=== PATIENT | male | born 1990 | race Caucasian/White ===

== ENCOUNTER 2020-10-24 18:28 | Inpatient (IN) | payer MEDICAID, SELFPAY ==
[2020-10-24 18:35] VITALS: BP 141/93; PULSE 136; RESP 20; TEMP 37.3; O2SAT 93
[2020-10-24 18:55] VITALS: BMI 50.0
[2020-10-24 20:59] VITALS: BP 167/84; PULSE 129; RESP 24; TEMP 36.5; O2SAT 96
[2020-10-24] MEDS: ondansetron 4 MG Tablet PO (21:32)
[2020-10-24] MEDS: loperamide 2 mg Capsule PO (21:32)
[2020-10-24] MEDS: hyDROXYzine 25 mg Capsule 50 MG PO (21:33)
[2020-10-24] MEDS: trazodone 50 mg Tablet PO (21:33)
[2020-10-25] MEDS: acetaminophen 325 mg Tablet 650 MG PO ×3 (00:41→20:01)
[2020-10-25 06:00] VITALS: BP 155/97; PULSE 99; RESP 20; TEMP 36.9; O2SAT 99
--- NOTE | 2020-10-25 06:01 | PM.NHP ---
Providers/Chief Complaint Admitting Physician: Arthur Swenson MD Chief Complaint: SI/Depression HPI NPU History of Present Illness Nomi Das is a 30 year old male Meds NPU Home Medications Medication Instructions Recorded Confirmed Last Taken Type cyclobenzaprine 10 mg PO TID PRN 10/24/20 10/24/20 Unknown History hydroxyzine pamoate [Vistaril] 100 mg PO TID 10/24/20 10/24/20 Unknown History lamotrigine [Lamictal] 25 mg PO DAILY 10/24/20 10/24/20 Unknown History lisinopril-hydrochlorothiazide 1 tab PO DAILY 10/24/20 10/24/20 Unknown History propranolol 10 mg PO DAILY 10/24/20 10/24/20 Unknown History quetiapine [Seroquel XR] 200 mg PO BEDTIME 10/24/20 10/24/20 Unknown History Allergies Allergy/AdvReac Type Severity Reaction Status Date / Time Penicillins Allergy Unknown Verified 10/24/20 23:46 Sulfa (Sulfonamide Allergy Unknown Verified 10/24/20 23:46 Antibiotics) Vitals/I&O/Wt Last Vital Signs Temp 97.7 F 10/24/20 20:59 Pulse 129 H 10/24/20 20:59 Resp 24 H 10/24/20 20:59 BP 167/84 10/24/20 20:59 Pulse Ox 96 10/24/20 20:59 Weight last 48 hrs Weight 181.437 kg Involuntary Hold Information 96 Hour Hold: 96 Hour Involuntary Admission: No Coding Level of Care Code Acute Machine Sign Writer for Severino Rutherford
[2020-10-25] MEDS: lamoTRIgine 25 mg Tablet PO (09:03)
[2020-10-25] MEDS: lisinopril 10 mg Tablet PO (09:03)
[2020-10-25] MEDS: propranolol 20 mg Tablet 10 MG PO ×2 (09:03→20:01)
[2020-10-25] MEDS: hydroCHLOROthiazide 25 mg Tablet 12.5 MG PO (09:03)
[2020-10-25] MEDS: hyDROXYzine 25 mg Capsule 100 MG PO ×3 (09:04→20:04)
[2020-10-25] MEDS: loperamide 2 mg Capsule PO (09:47)
--- NOTE | 2020-10-25 11:30 | PC.OT ---
Pt did not attend a.m. OT group.
[2020-10-25 14:00] VITALS: BP 124/80; PULSE 86; RESP 18; TEMP 37.2; O2SAT 98
--- NOTE | 2020-10-25 15:00 | PC.OT ---
Pt did not attend p.m. OT group.
--- NOTE | 2020-10-25 15:10 | P.HP_ITS ---
Providers/Chief Complaint Admitting Physician: Arthur Swenson MD <GRAYSON Pickering STDNT - Last Filed: 10/26/20 11:29> Chief Complaint: SI/Depression <GRAYSON Pickering STDNT - Last Filed: 10/26/20 11:29> HPI NPU History of Present Illness Nomi Das is a 30 year old male with a history of depression and suicidal ideation arriving from [facility]. The ER note states: Patient was released from a psych facility approximately 10 days ago. States that he did not get his medications filled at discharge because his father wouldn't pay for them. he states that he has had thoughts of overdosing on flexeril. Other records state: EtOH negative, Acetaminophen negative, negative: amphetamines, barbiturates, benzodiazepines, cocaine, marijuana, opiates. The patient reports feeling ups and downs more frequently in the past two months. He denies suicidal ideation today but admits previous suicidal ideation related to this admission. He no longer drinks but reports that he used to drink 1 pint of whiskey per day up to three months ago when he quit because he could no longer pay for it. He denies using or a history of using any illicit drugs. He says that his primary stressors are living with his father, father's girlfriend, girlfriend's family (4 people) and financial problems. The patient has a history of taking the medications listed below but has not been adherent due to a lack of access. The patient was diagnosed with schizoaffective disorder at the age of 17 or 18. The patient has been admitted for psychiatric reasons 6 times: 2 times for suicide attempts as a minor, 5 years ago for a suicide attempt, and 4 times since August 2020 for suicidal ideation and depression. 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 The patient states he hopes to be placed in an F because he feels it will be more structured than his current living situation and that he needs that structure in order to stay well. Psychiatric history: as above Substance use history: as above Family history: The patient denies any history of treated or untreated mental conditions in his family as well as denies suicide attempts or completion in the family. 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 <Carlitos De Santiago [facility] STDNT - Last Filed: 10/26/20 11:29> Pt seen with student. Agree with above. <Arthur Swenson MD - Last Filed: 10/27/20 09:50> Meds NPU Home Medications Medication Instructions Recorded Confirmed Last Taken Type cyclobenzaprine 10 mg PO TID PRN 10/24/20 10/24/20 Unknown History hydroxyzine pamoate [Vistaril] 100 mg PO TID 10/24/20 10/24/20 Unknown History lamotrigine [Lamictal] 25 mg PO DAILY 10/24/20 10/24/20 Unknown History lisinopril-hydrochlorothiazide 1 tab PO DAILY 10/24/20 10/24/20 Unknown History propranolol 10 mg PO DAILY 10/24/20 10/24/20 Unknown History quetiapine [Seroquel XR] 200 mg PO BEDTIME 10/24/20 10/24/20 Unknown History <Carlitos De Santiago [facility] STDNT - Last Filed: 10/26/20 11:29> Allergies Allergy/AdvReac Type Severity Reaction Status Date / Time Penicillins Allergy Unknown Verified 10/24/20 23:46 Sulfa (Sulfonamide Allergy Unknown Verified 10/24/20 23:46 Antibiotics) <Carlitos De Santiago [facility] STDNT - Last Filed: 10/26/20 11:29> PFSH NPU PFSH: Medical History (Updated 10/26/20 @ 11:03 by Arthur Swenson MD) Schizoaffective disorder, depressive type <Carlitos De Santiago [facility] STDNT - Last Filed: 10/26/20 11:29> Mental Status Exam MSE Comments: I met with the patient in his room, and he was dressed in hospital scrubs and appropriately groomed. He was calm, cooperative, interactive, and made good eye contact. No psychomotor agitation or retardation Speech is at a regular rate and rhythm, normal volume, good articulation, not pressured. Alert, oriented to person, place, time, situation Attention and concentration were intact to exam Memory is adequate for the interview Mood is depressed. Affect is anxious. Thought process is logical and goal-directed. Thought content: The patient denies suicidal ideation, homicidal ideation, and AVH. The patient reports paranoia. Insight and judgment are fair. Impulse control is fair as well. <Carlitos De Santiago MED STDNT - Last Filed: 10/26/20 11:29> Pt seen with student. Notes reviewed together. Agree with above. <Arthur Swenson MD - Last Filed: 10/27/20 09:50> Vitals/I&O/Wt Last Vital Signs Temp 98.9 F 10/25/20 14:00 Pulse 86 10/25/20 14:00 Resp 18 10/25/20 14:00 BP 124/80 10/25/20 14:00 Pulse Ox 98 10/25/20 14:00 <Carlitos De Santiago MED STDNT - Last Filed: 10/26/20 11:29> Weight last 48 hrs Weight 181.437 kg <Carlitos De Santiago MED STDNT - Last Filed: 10/26/20 11:29> A&P Assessment and plan (1) Major depressive disorder, recurrent severe without psychotic features: Status: Acute <Carlitos De Santiago MED STDNT - Last Filed: 10/26/20 11:29> (2) Anxiety disorder, unspecified: Status: Acute <Carlitos De Santiago MED STDNT - Last Filed: 10/26/20 11:29> Additional A&P Information Assessment and plan (1) Major depressive disorder, recurrent severe without psychotic features: Continue Lamictil 25mg, Seroquel 200mg (2) Anxiety disorder, unspecified: Continue Vistaril 100mg (3) Schizoaffective disorder, depressive type: History of schizoaffective disorder and schizophrenia. Will continue to evaluate for signs and symptoms of these disorders. Nomi Das is a 30 year old male with a history of schizoaffective disorder and suicidal ideation who was transferred from [facility]. RECOMMENDATION AND PLAN: 1. We will continue medication. 2. Continue every 15 minute checks for safety. 3. Encourage individual, group and milieu therapies. 4. Encourage sober living treatment after discharge at the highest level of care to which he is willing to commit. <Carlitos De Santiago MED STDNT - Last Filed: 10/26/20 11:29> History of schizoaffective disorder and schizophrenia. Will continue to evaluate for signs and symptoms of these disorders. Pt seen with student. Plan created together. Agree with above. <Arthur Swenson MD - Last Filed: 10/27/20 09:50> Involuntary Hold Information 96 Hour Hold: 96 Hour Involuntary Admission: No <GRAYSON Pickering STDGERA - Last Filed: 10/26/20 11:29> Attestations NPU Medical Necessity Statement*: . <GRAYSON Pickering STDGERA - Last Filed: 10/26/20 11:29> Psychiatric hospitalization is medically necessary to prevent access to lethal means, to reevaluate medication, and to coordinate a safe discharge. Patient will be in the hospital for over 2 midnights. Likely length of stay is 3 to 5 days. <Arthur Swenson MD - Last Filed: 10/27/20 09:50> Coding Level of Care Code Acute Engineering Research Manager for Chg Fwd Diagnoses Major depressive disorder, recurrent severe without psychotic features F33.2 Anxiety disorder, unspecified F41.9
[2020-10-25] MEDS: quetiapine XR (24HR) 50 mg Tablet 200 MG PO (20:00)
--- NOTE | 2020-10-25 20:00 | PC.NURSE ---
pt requested sleep med, Trazodone 50mg po given.
[2020-10-25] MEDS: trazodone 50 mg Tablet PO (20:01)
[2020-10-25] MEDS: gabapentin 300 mg Capsule PO (20:01)
[2020-10-25 22:00] VITALS: BP 128/89; PULSE 117; RESP 16; TEMP 36.8; O2SAT 94
[2020-10-25] MEDS: naproxen 500 mg Tablet PO (22:58)
--- NOTE | 2020-10-25 23:22 | PC.NURSE ---
PM Assessment Pt cooperative with staff, requested a shower this evening, and he was taken to the shower area, his heart and lung sounds are wnl. Pt states that he has pain in his back and legs rated a 7, requested Naproxen for the pain. Order obtained for 500mg PO Naproxen BID scheduled, administered by med nurse, reassessed and patient reports decrease in pain to a 2. Pt denies AVH, Denies SI/HI at this time. Pt states he is mildly anxious and would like medication to help, med nurse administered 50mg PO Visteril that was affective in decreasing his anxiety to a manageable level. Pt requested medication to help him go to sleep tonight, med nurse administered 50mg PO Trazodone, upon reassessment, the patient was sound asleep laying on his side, snoring.
[2020-10-26] MEDS: acetaminophen 325 mg Tablet 650 MG PO (03:58)
[2020-10-26 06:00] VITALS: BP 108/69; PULSE 77; RESP 18; TEMP 36.7; O2SAT 94
[2020-10-26] MEDS: naproxen 500 mg Tablet PO ×2 (09:01→21:41)
[2020-10-26] MEDS: gabapentin 300 mg Capsule PO ×3 (09:01→21:42)
[2020-10-26] MEDS: lamoTRIgine 25 mg Tablet PO (09:01)
[2020-10-26] MEDS: lisinopril 10 mg Tablet PO (09:02)
[2020-10-26] MEDS: hydroCHLOROthiazide 25 mg Tablet 12.5 MG PO (09:02)
[2020-10-26] MEDS: propranolol 20 mg Tablet 10 MG PO ×3 (09:02→21:42)
[2020-10-26] MEDS: hyDROXYzine 25 mg Capsule 100 MG PO ×3 (09:03→21:42)
--- NOTE | 2020-10-26 10:09 | P.PN_ITS ---
Subjective NPU Subjective: Interval history: I met with the patient in his room. He reports still not sleeping well but better than the previous night. He believes his medication helps him and he reports no side effects from the medication. When asked about how he feels he states that he gets anxious in groups of people and reports that began in childhood. He reports paranoia and states that is worsened when he is anxious or overstimulated. He describes his paranoia as constantly looking over his shoulder and states that he's had these symptoms for years. <Carlitos De Santiago, [facility] STDNT - Last Filed: 10/26/20 11:28> Interval history: Patients describes depression, which he rates at 5/10 in severity. He feels that the anxiety he suffers drives the depression, meaning that if he were not anxious, he does not feel he would be depressed. He rates his anxiety at 9/10 in severity. He says that anxiety is accompanied by sweating, and tingling. It is a feeling of wanting to run or of being smothered. When I asked him about the voices he is heard in the past he says, it is my voice, my internal monologue. His internal monologue is critical of him, telling him he is a failure and that he is not good enough. He denies hearing voices other than his own voice or thoughts. The patient says that he took Zoloft when he was a teenager, and it was helpful for both his depression and anxiety. He says he took Wellbutrin earlier this summer for 6 weeks, and it even to be out. He says it helped his depression but not his anxiety. He says he was taken off the Wellbutrin when he was hospitalized at [facility], when they changed all of his medication. It was not stopped because of lack of effectiveness or because of side effects. He does not remember taking any other antidepressants such as Prozac, Lexapro, Celexa, Paxil, Effexor, Pristiq, or Remeron. The patient denies having a history of manic symptoms such as euphoria, decreased need for sleep, grandiosity, etc. I explained to the patient that his most likely diagnoses are depression and anxiety, and that an SSRI could help with both. Our goal would be to reduce or eliminate depressive and anxious symptoms. He seemed relieved to know that that was a possibility. We discussed starting Zoloft, since that is a medication he took in his teen years with some success and without side effects. He consented to a trial. <Arthur Swenson MD - Last Filed: 10/27/20 10:04> Mental Status Exam MSE Comments: I met with the patient in his room, and he was dressed in hospital scrubs and somewhat sloppily groomed. He was calm, cooperative, interactive, and made good eye contact. No psychomotor agitation or retardation Speech is at a regular rate and rhythm, normal volume, good articulation, not pressured. Alert, oriented to person, place, time, situation Attention and concentration were intact to exam Memory is adequate for the interview Mood is good. Affect is flat. Thought process is logical and goal-directed. Thought content: The patient denies suicidal ideation, homicidal ideation, and AVH. The patient reports general paranoia. Insight, judgment, and impulse control are fair. <GRAYSON Pickering STDNT - Last Filed: 10/26/20 11:28> Reviewed with student. Agree with above. <Arthur Swenson MD - Last Filed: 10/27/20 10:04> Vitals/I&O/Wt Last Vital Signs Temp 98.1 F 10/26/20 06:00 Pulse 77 10/26/20 06:00 Resp 18 10/26/20 06:00 BP 108/69 10/26/20 06:00 Pulse Ox 94 10/26/20 06:00 <GRAYSON Pickering STDNT - Last Filed: 10/26/20 11:28> Weight last 48 hrs Weight 181.437 kg <GRAYSON Pickering STDNT - Last Filed: 10/26/20 11:28> A&P Assessment and plan (1) Major depressive disorder, recurrent severe without psychotic features: Status: Acute <GRAYSON Pickering STDNT - Last Filed: 10/26/20 11:28> (2) Anxiety disorder, unspecified: Status: Acute <GRAYSON Pickering STDNT - Last Filed: 10/26/20 11:28> (3) Schizoaffective disorder, depressive type: History of schizoaffective disorder and schizophrenia. Will continue to evaluate for signs and symptoms of these disorders. <Arthur Swenson MD - Last Filed: 10/27/20 10:04> Status: Suspected <GRAYSON Pickering STDNT - Last Filed: 10/26/20 11:28> Additional A&P Information Nomi Das is a 30 year old male with a history of schizoaffective disorder and suicidal ideation who was transferred from [facility]. RECOMMENDATION AND PLAN: 1. We will continue medication. 2. Continue every 15 minute checks for safety. 3. Encourage individual, group and milieu therapies. 4. Encourage sober living treatment after discharge at the highest level of care to which he is willing to commit. <GRAYSON Pickering STDNT - Last Filed: 10/26/20 11:28> Nomi Das is a 30 year old male with a history of schizoaffective disorder and suicidal ideation who was transferred from [facility]. He has had diagnoses of schizophrenia and schizoaffective disorder in the past. It appears that he he has intense negative self talk rather than hallucinations. More accurate diagnosis are probably depression and anxiety. We will add Zoloft 50 mg daily for depression and anxiety. Patient consents. <Arthur Swenson MD - Last Filed: 10/27/20 10:04> Involuntary Hold Information 96 Hour Hold: 96 Hour Involuntary Admission: No <GRAYSON Pickering - Last Filed: 10/26/20 11:28> Attestations NPU Medical Necessity Statement*: . <GRAYSON Pickering STDNT - Last Filed: 10/26/20 11:28> Psychiatric hospitalization is medically necessary to prevent access to lethal means, to reevaluate medication, and to coordinate a safe discharge. Likely length of stay is 2 to 4 days. <Arthur Swenson MD - Last Filed: 10/27/20 10:04> Coding Level of Care Code Acute Artificial Limb Maker for Chg Fwd Diagnoses Major depressive disorder, recurrent severe without psychotic features F33.2 Anxiety disorder, unspecified F41.9 Schizoaffective disorder, depressive type F25.1
[2020-10-26] MEDS: nicotine 21 mg Patch 1 PATCH TRANSDERMA (10:48)
[2020-10-26 14:00] VITALS: BP 119/75; PULSE 78; RESP 16; TEMP 36.8; O2SAT 96
[2020-10-26] MEDS: sertraline 50 mg Tablet PO ×2 (15:29→15:36)
[2020-10-26 20:03] VITALS: BP 97/60; PULSE 74; RESP 18; TEMP 36.8; O2SAT 94
[2020-10-26] MEDS: quetiapine XR (24HR) 50 mg Tablet 200 MG PO (21:41)
[2020-10-27 06:00] VITALS: BP 123/85; PULSE 76; RESP 18; TEMP 36.5; O2SAT 95
[2020-10-27] MEDS: gabapentin 300 mg Capsule PO ×3 (08:33→20:55)
[2020-10-27] MEDS: naproxen 500 mg Tablet PO ×2 (08:34→20:55)
[2020-10-27] MEDS: lamoTRIgine 25 mg Tablet PO (08:34)
[2020-10-27] MEDS: hydroCHLOROthiazide 25 mg Tablet 12.5 MG PO (08:34)
[2020-10-27] MEDS: lisinopril 10 mg Tablet PO (08:34)
[2020-10-27] MEDS: hyDROXYzine 25 mg Capsule 100 MG PO ×3 (08:35→20:54)
[2020-10-27] MEDS: propranolol 20 mg Tablet 10 MG PO ×3 (08:35→20:55)
[2020-10-27] MEDS: sertraline 50 mg Tablet PO (08:35)
--- NOTE | 2020-10-27 09:46 | PM.NPN ---
Subjective NPU Subjective: Interval history: I met with the patient in his room. The patient woke up when I knocked on the door, and he reports sleeping well. We discussed Dr. Swenson's decision to add 50 mg of Zoloft and the patient believes that will help him. The patient states that he understands the timeline of affect with this new medication. He describes a generally positive outlook on life but worries that he may not be able to work again unless his anxiety is resolved. He believes that if the right medication is found that he will not need to be admitted again. He does not mention feeling like he needs to look over his shoulder in the last 24 hours unlike yesterday. <Carlitos De Santiago MED STDNT - Last Filed: 10/27/20 09:56> Mental Status Exam MSE Comments: I met with the patient in his room, and he was dressed in hospital scrubs and somewhat sloppily groomed. He was calm, cooperative, interactive, and made good eye contact. No psychomotor agitation or retardation Speech is at a regular rate and rhythm, normal volume, good articulation, not pressured. Alert, oriented to person, place, time, situation Attention and concentration were intact to exam Memory is adequate for the interview Mood is fine. Affect is pleasant. Thought process is logical and goal-directed. Thought content: The patient denies suicidal ideation, homicidal ideation, paranoia, and AVH. Insight, judgment, and impulse control are fair. <Carlitos De Santiago MED STDNT - Last Filed: 10/27/20 09:56> Vitals/I&O/Wt Last Vital Signs Temp 97.7 F 10/27/20 06:00 Pulse 76 10/27/20 06:00 Resp 18 10/27/20 06:00 BP 123/85 10/27/20 06:00 Pulse Ox 95 10/27/20 06:00 <Carlitos De Santiago MED STDNT - Last Filed: 10/27/20 09:56> A&P Assessment and plan (1) Major depressive disorder, recurrent severe without psychotic features: Add 50mg Zoloft. <Carlitos De Santiago MED STDNT - Last Filed: 10/27/20 09:56> Status: Acute <Carlitos De Santiago MED STDNT - Last Filed: 10/27/20 09:56> (2) Anxiety disorder, unspecified: see above <GRAYSON Pickering STDNT - Last Filed: 10/27/20 09:56> Status: Acute <GRAYSON Pickering STDNT - Last Filed: 10/27/20 09:56> (3) Schizoaffective disorder, depressive type: History of schizoaffective disorder and schizophrenia. Will continue to evaluate for signs and symptoms of these disorders. <GRAYSON Pickering STDNT - Last Filed: 10/27/20 09:56> Status: Suspected <GRAYSON Pickering STDNT - Last Filed: 10/27/20 09:56> Additional A&P Information Nomi Das is a 30 year old male with a history of schizoaffective disorder and suicidal ideation who was transferred from [facility]. RECOMMENDATION AND PLAN: 1. We will continue medication and add 50mg Zoloft. 2. Continue every 15 minute checks for safety. 3. Encourage individual, group and milieu therapies. 4. Encourage sober living treatment after discharge at the highest level of care to which he is willing to commit. <GRAYSON Pickering STDNT - Last Filed: 10/27/20 09:56> Involuntary Hold Information 96 Hour Hold: 96 Hour Involuntary Admission: No <GRAYSON Pickering STDNT - Last Filed: 10/27/20 09:56> Attestations NPU Medical Necessity Statement*: . <GRAYSON Pickering STDNT - Last Filed: 10/27/20 09:56> Inpatient hospitalization is medically necessary and the clinically appropriate intervention at this time. We will monitor medications and make changes as indicated. Likely length of stay 2-4 days. <Lennox Valentin MD - Last Filed: 10/28/20 06:36> Other Attestations: Other Attestations: Met with patient independently and also reviewed case medical student. Carlitos confirmed the above-stated interaction and endorsed same conceptualizations with this pattern chart writer. Patient continues to need ongoing treatment as stated above we will continue to monitor occasions and continue individual, group and milieu therapies. Agree with documentation above as written. <Lennox Valentin MD - Last Filed: 10/28/20 06:36> Coding Level of Care Code Acute Finishing Area Operator for Chg Fwd Diagnoses Major depressive disorder, recurrent severe without psychotic features F33.2 Anxiety disorder, unspecified F41.9 Schizoaffective disorder, depressive type F25.1
[2020-10-27 13:53] VITALS: BP 132/88; PULSE 60; RESP 18; TEMP 36.3; O2SAT 96
[2020-10-27] MEDS: trazodone 50 mg Tablet PO (20:55)
[2020-10-27] MEDS: quetiapine XR (24HR) 50 mg Tablet 200 MG PO (20:56)
[2020-10-27 22:00] VITALS: BP 126/84; PULSE 64; RESP 18; TEMP 36.6; O2SAT 98
[2020-10-28 06:00] VITALS: BP 126/84; PULSE 64; RESP 18; TEMP 36.6; O2SAT 98
--- NOTE | 2020-10-28 07:02 | P.PN_ITS ---
Subjective NPU Subjective: Interval history: I met with this patient in his room. The patient woke when I knocked on the door, and he reports sleeping well. He reports feeling okay. He reports no medication side effects. He is curious about being weaned off of Lamictal and Seroquel. He describes an anxious outlook on his life after discharge, but believes it will all returns processor alright. He says that he feels more positive about the outlook every day. He continues to be confident in the treatment plan. <Carlitos De Santiago MED STDNT - Last Filed: 10/28/20 07:14> Mental Status Exam MSE Comments: I met with the patient in his room, and he was dressed in hospital scrubs and somewhat appropriately groomed. He was calm, cooperative, interactive, and made good eye contact. No psychomotor agitation or retardation Speech is at a regular rate and rhythm, normal volume, good articulation, not pressured. Alert, oriented to person, place, time, situation Attention and concentration were intact to exam Memory is adequate for the interview Mood is okay. Affect is pleasant. Thought process is logical and goal-directed. Thought content: The patient denies suicidal ideation, homicidal ideation, paranoia, and AVH. Insight, judgment, and impulse control are good. <Carlitos De Santiago MED STDNT - Last Filed: 10/28/20 07:14> Vitals/I&O/Wt Last Vital Signs Temp 97.9 F 10/28/20 06:00 Pulse 64 10/28/20 06:00 Resp 18 10/28/20 06:00 BP 126/84 10/28/20 06:00 Pulse Ox 98 10/28/20 06:00 <Carlitos De Santiago MED STDNT - Last Filed: 10/28/20 07:14> A&P Assessment and plan (1) Major depressive disorder, recurrent severe without psychotic features: Continue 50 mg of Zoloft. <Carlitos De Santiago MED STDNT - Last Filed: 10/28/20 07:14> Status: Acute <Carlitos De Santiago MED STDNT - Last Filed: 10/28/20 07:14> (2) Anxiety disorder, unspecified: See above <Carlitos De Santiago MED STDNT - Last Filed: 10/28/20 07:14> Status: Acute <GRAYSON Pickering STDNT - Last Filed: 10/28/20 07:14> (3) Schizoaffective disorder, depressive type: History of schizoaffective disorder and schizophrenia. Will continue to evaluate for signs and symptoms of these disorders. <GRAYSON Pickering STDNT - Last Filed: 10/28/20 07:14> Status: Suspected <GRAYSON Pickering STDNT - Last Filed: 10/28/20 07:14> Additional A&P Information Nomi Das is a 30 year old male with a history of schizoaffective disorder and suicidal ideation who was transferred from [facility]. He has had diagnoses of schizophrenia and schizoaffective disorder in the past. It appears that he he has intense negative self talk rather than hallucinations. More accurate diagnosis are probably depression and anxiety. RECOMMENDATION AND PLAN: 1. We will continue medications. 2. Continue every 15 minute checks for safety. 3. Encourage individual, group and milieu therapies. 4. Encourage sober living treatment after discharge at the highest level of care to which he is willing to commit. <GRAYSON Pickering STDNT - Last Filed: 10/28/20 07:14> Involuntary Hold Information 96 Hour Hold: 96 Hour Involuntary Admission: No <GRAYSON Pickering STDNT - Last Filed: 10/28/20 07:14> Attestations NPU Medical Necessity Statement*: . <GRAYSON Pickering STDNT - Last Filed: 10/28/20 07:14> Inpatient hospitalization is medically necessary to be clinically appropriate event and at this time. Will monitor medications and make changes as indicated. Likely length of stay 1 to 3 days. <Lennox Valentin MD - Last Filed: 10/30/20 09:36> Other Attestations: Other Attestations: Spoke with patient independently and reviewed case with medical student and agree with documentation above. Patient expressing concern about multiple hospitalizations in the last few months and wanting to make sure this 1 does not and likely others and is hopeful we will help him allow the medication to take effect prior to discharge. We discussed giving a little more time with the plan of discharging by Saturday. <Lennox Valentin MD - Last Filed: 10/30/20 09:36> Coding Level of Care Code Acute Scrap Preparation Supervisor for g Fwd Diagnoses Major depressive disorder, recurrent severe without psychotic features F33.2 Anxiety disorder, unspecified F41.9 Schizoaffective disorder, depressive type F25.1
[2020-10-28] MEDS: naproxen 500 mg Tablet PO ×2 (08:38→22:48)
[2020-10-28] MEDS: lisinopril 10 mg Tablet PO (08:38)
[2020-10-28] MEDS: hyDROXYzine 25 mg Capsule 100 MG PO ×3 (08:38→20:56)
[2020-10-28] MEDS: hydroCHLOROthiazide 25 mg Tablet 12.5 MG PO (08:39)
[2020-10-28] MEDS: propranolol 20 mg Tablet 10 MG PO ×3 (08:39→20:56)
[2020-10-28] MEDS: lamoTRIgine 25 mg Tablet PO (08:39)
[2020-10-28] MEDS: gabapentin 300 mg Capsule PO ×3 (08:39→20:55)
[2020-10-28] MEDS: sertraline 50 mg Tablet PO (08:39)
[2020-10-28] MEDS: nicotine 2 mg Gum BUCCAL ×3 (12:10→21:09)
[2020-10-28 14:00] VITALS: BP 136/89; PULSE 64; RESP 18; TEMP 36.5; O2SAT 95
[2020-10-28 20:24] VITALS: BP 125/86; PULSE 69; RESP 19; TEMP 36.8; O2SAT 94
[2020-10-28] MEDS: cyclobenzaprine 10 mg Tablet PO (20:56)
[2020-10-28] MEDS: quetiapine XR (24HR) 50 mg Tablet 200 MG PO (20:57)
[2020-10-28] MEDS: trazodone 50 mg Tablet PO (20:57)
[2020-10-29 06:00] VITALS: BP 92/58; PULSE 62; RESP 17; TEMP 36.5; O2SAT 94
[2020-10-29] MEDS: nicotine 2 mg Gum BUCCAL ×3 (09:51→21:33)
[2020-10-29] MEDS: hydroCHLOROthiazide 25 mg Tablet 12.5 MG PO (09:52)
[2020-10-29] MEDS: gabapentin 300 mg Capsule PO ×3 (09:52→21:20)
[2020-10-29] MEDS: hyDROXYzine 25 mg Capsule 100 MG PO ×3 (09:53→21:21)
[2020-10-29] MEDS: lisinopril 10 mg Tablet PO (09:53)
[2020-10-29] MEDS: sertraline 50 mg Tablet PO (09:53)
[2020-10-29] MEDS: lamoTRIgine 25 mg Tablet PO (09:54)
[2020-10-29] MEDS: naproxen 500 mg Tablet PO ×2 (09:54→21:20)
[2020-10-29] MEDS: propranolol 20 mg Tablet 10 MG PO ×3 (09:54→21:20)
[2020-10-29 13:51] VITALS: BP 145/88; PULSE 70; RESP 14; TEMP 36.6; O2SAT 95
--- NOTE | 2020-10-29 16:42 | P.PN_ITS ---
Subjective NPU Subjective: Interval history: Patient presents today reporting that he is appreciative of the extra time to get himself settled and prepared to face the challenges at home. He knows he needs to find a reasonable place to go and that he is wanting to go home first but he was going to write him a mind to accomplish this. He reports the medication is going okay and he is open to the continued changes as this senior medical writer sees fit. He reports eating okay and sleeping a little better. Mental Status Exam MSE Comments: This is a morbidly obese white male in hospital scrubs limited grooming and adequate eye contact. No abnormal movements except for mild psychomotor retardation. Cooperative with exam in no acute distress. Speech was slightly decreased rate and volume. Mood described as starting to feel better, affect slightly subdued. Thought process organized, thought content: Patient denied suicidal or homicidal ideation, there are no delusions reported or noted, he denied any auditory or visual hallucinations. Attention and concentration were intact and memory appeared reliable but never formally tested. He is alert and oriented x3. Insight and judgment appear limited and impulse control appears limited. Vitals/I&O/Wt Last Vital Signs Temp 97.8 F 10/29/20 13:51 Pulse 70 10/29/20 13:51 Resp 14 10/29/20 13:51 BP 145/88 10/29/20 13:51 Pulse Ox 95 10/29/20 13:51 A&P Additional A&P Information (1) Major depressive disorder, recurrent severe without psychotic features: (2) Anxiety disorder, unspecified: (3) Schizoaffective disorder, depressive type: History of schizoaffective disorder and schizophrenia. Will continue to evaluate for signs and symptoms of these disorders. Nomi Das is a 30 year old male with a history of schizoaffective disorder and suicidal ideation who was transferred from [facility]. He has had diagnoses of schizophrenia and schizoaffective disorder in the past. It appears that he he has intense negative self talk rather than hallucinations. More accurate diagnosis are probably depression and anxiety. RECOMMENDATION AND PLAN: 1. We will continue medications. 2. Continue every 15 minute checks for safety. 3. Encourage individual, group and milieu therapies. 4. Encourage sober living treatment after discharge at the highest level of care to which he is willing to commit. Involuntary Hold Information 96 Hour Hold: 96 Hour Involuntary Admission: No Attestations NPU Medical Necessity Statement*: Inpatient hospitalization is medically necessary to be clinically appropriate event and at this time. Will monitor medications and make changes as indicated. Likely length of stay 1 to 3 days. Coding Level of Care Code Acute Medication Reconciliation Technician for Severino Rutherford
[2020-10-29 21:20] VITALS: BP 147/87; PULSE 76; RESP 16; TEMP 36.7; O2SAT 96
[2020-10-29] MEDS: quetiapine XR (24HR) 50 mg Tablet 200 MG PO (21:20)
[2020-10-29] MEDS: trazodone 50 mg Tablet PO (21:20)
--- NOTE | 2020-10-29 21:30 | PC.NURSE ---
pt requested sleep med, trazodone 50mg po given.
--- NOTE | 2020-10-29 22:10 | PC.NURSE ---
pt in room resting quietly with both eyes closed.
[2020-10-30 06:00] VITALS: BP 132/86; PULSE 74; RESP 19; TEMP 36.8; O2SAT 98; BMI 50.1
[2020-10-30] MEDS: lamoTRIgine 25 mg Tablet PO (09:47)
[2020-10-30] MEDS: gabapentin 300 mg Capsule PO ×3 (09:47→21:51)
[2020-10-30] MEDS: hyDROXYzine 25 mg Capsule 100 MG PO ×3 (09:47→21:50)
[2020-10-30] MEDS: sertraline 50 mg Tablet PO (09:47)
[2020-10-30] MEDS: naproxen 500 mg Tablet PO ×2 (09:47→21:51)
[2020-10-30] MEDS: nicotine 2 mg Gum BUCCAL ×2 (09:48→14:49)
[2020-10-30] MEDS: propranolol 20 mg Tablet 10 MG PO ×3 (09:48→21:51)
[2020-10-30] MEDS: lisinopril 10 mg Tablet PO (09:48)
[2020-10-30] MEDS: hydroCHLOROthiazide 25 mg Tablet 12.5 MG PO (09:49)
--- NOTE | 2020-10-30 12:20 | PM.NPN ---
Subjective NPU Subjective: Interval history: Nomi presents today reporting that he is feeling that he moving the right direction. Discussed that the social workers and remainder of the treatment team will be in the morning for a more robust conversation about discharge and discharge planning. He is fully aware that his desire to an ISL or penitentiary will require some time functioning back at home but he has a goal and the process is underway. We discussed the likely discharge in the morning. Mental Status Exam MSE Comments: This is a morbidly obese white male in hospital scrubs limited grooming and adequate eye contact. No abnormal movements except for mild psychomotor retardation. Cooperative with exam in no acute distress. Speech was more normal rate and volume. Mood described as a little better, affect congruent. Thought process organized, thought content: Patient denied suicidal or homicidal ideation, there are no delusions reported or noted, he denied any auditory or visual hallucinations. Attention and concentration were intact and memory appeared reliable but never formally tested. He is alert and oriented x3. Insight and judgment are improving and impulse control appears limited, but improving. Vitals/I&O/Wt Last Vital Signs Temp 98.3 F 10/30/20 06:00 Pulse 74 10/30/20 06:00 Resp 19 H 10/30/20 06:00 BP 132/86 10/30/20 06:00 Pulse Ox 98 10/30/20 06:00 Weight last 48 hrs Weight 181.891 kg A&P Additional A&P Information (1) Major depressive disorder, recurrent severe without psychotic features: (2) Anxiety disorder, unspecified: (3) Schizoaffective disorder, depressive type: History of schizoaffective disorder and schizophrenia. Will continue to evaluate for signs and symptoms of these disorders. Nomi Das is a 30 year old male with a history of schizoaffective disorder and suicidal ideation who was transferred from [facility]. He has had diagnoses of schizophrenia and schizoaffective disorder in the past. It appears that he he has intense negative self talk rather than hallucinations. More accurate diagnosis are probably depression and anxiety. RECOMMENDATION AND PLAN: 1. We will continue medications. 2. Continue every 15 minute checks for safety. 3. Encourage individual, group and milieu therapies. 4. Encourage sober living treatment after discharge at the highest level of care to which he is willing to commit. Involuntary Hold Information 96 Hour Hold: 96 Hour Involuntary Admission: No Attestations NPU Medical Necessity Statement*: Inpatient hospitalization is medically necessary to be clinically appropriate event and at this time. Will monitor medications and make changes as indicated. Likely length of stay 1 to 2 days. Coding Level of Care Code Acute Automatic Spinning Lathe Operator for Severino Rutherford
[2020-10-30 13:51] VITALS: BP 114/71; PULSE 80; RESP 16; TEMP 36.8; O2SAT 94
[2020-10-30] MEDS: OLANZapine 5 mg ODT PO (14:11)
[2020-10-30] MEDS: haloperidol 5 mg Tablet PO (14:54)
[2020-10-30] MEDS: quetiapine XR (24HR) 50 mg Tablet 200 MG PO (21:51)
[2020-10-30] MEDS: trazodone 50 mg Tablet PO (21:51)
--- NOTE | 2020-10-30 21:55 | PC.NURSE ---
pt requested sleep med, Trazodone 50mg po given.
[2020-10-30 22:00] VITALS: RESP 16
--- NOTE | 2020-10-30 22:32 | PC.NURSE ---
pt refused to continue sleeping respirations were observed/ liz
--- NOTE | 2020-10-30 22:45 | PC.NURSE ---
pt in room resting quietly with both eyes closed.
[2020-10-31] MEDS: hyDROXYzine 25 mg Capsule 100 MG PO ×3 (08:40→21:18)
[2020-10-31] MEDS: lamoTRIgine 25 mg Tablet PO (08:41)
[2020-10-31] MEDS: propranolol 20 mg Tablet 10 MG PO ×3 (08:41→21:19)
[2020-10-31] MEDS: sertraline 50 mg Tablet PO (08:41)
[2020-10-31] MEDS: naproxen 500 mg Tablet PO ×2 (08:41→21:20)
[2020-10-31] MEDS: lisinopril 10 mg Tablet PO (08:42)
[2020-10-31] MEDS: gabapentin 300 mg Capsule PO ×3 (08:42→21:20)
[2020-10-31] MEDS: hydroCHLOROthiazide 25 mg Tablet 12.5 MG PO (08:42)
[2020-10-31] MEDS: nicotine 2 mg Gum BUCCAL (08:44)
[2020-10-31 10:38] VITALS: RESP 16
[2020-10-31 14:00] VITALS: BP 134/78; PULSE 88; RESP 16; TEMP 37.1; O2SAT 98
--- NOTE | 2020-10-31 18:40 | P.PN_ITS ---
Subjective NPU Subjective: Interval history: this today much be suspected having great medicines about the idea of discharge. Given his multiple admissions recently he endorsed not being ready and being concerned about the medication was really working he would respond to the circumstances. Mental Status Exam MSE Comments: This is a morbidly obese white male in hospital scrubs limited grooming and adequate eye contact. No abnormal movements except for mild psychomotor retardation. Cooperative with exam in no acute distress. Speech was more normal rate and volume. Mood described as anxious, not sure about this, affect congruent. Thought process organized, thought content: Patient denied suicidal or homicidal ideation, there are no delusions reported or noted, he denied any auditory or visual hallucinations. Attention and concentration were intact and memory appeared reliable but never formally tested. He is alert and oriented x3. Insight and judgment are improving and impulse control appears limited, but improving. Vitals/I&O/Wt Last Vital Signs Temp 98.4 F 10/31/20 20:08 Pulse 78 10/31/20 20:08 Resp 18 10/31/20 20:08 BP 130/87 10/31/20 20:08 Pulse Ox 94 10/31/20 20:08 Weight last 48 hrs Weight 181.891 kg A&P Additional A&P Information (1) Major depressive disorder, recurrent severe without psychotic features: (2) Anxiety disorder, unspecified: (3) Schizoaffective disorder, depressive type: History of schizoaffective disorder and schizophrenia. Will continue to evaluate for signs and symptoms of these disorders. Nomi Das is a 30 year old male with a history of schizoaffective disorder and suicidal ideation who was transferred from [facility]. He has had diagnoses of schizophrenia and schizoaffective disorder in the past. It appears that he he has intense negative self talk rather than hallucinations. More accurate diagnosis are probably depression and anxiety. RECOMMENDATION AND PLAN: 1. We will continue medications. 2. Continue every 15 minute checks for safety. 3. Encourage individual, group and milieu therapies. 4. Encourage sober living treatment after discharge at the highest level of care to which he is willing to commit. 5. A long discussion with Nomi about situation and limitations of the neuropsychiatric unit. We discussed him continuing to take Zyprexa in the evening and we would plan for discharge on Saturday. Involuntary Hold Information 96 Hour Hold: 96 Hour Involuntary Admission: No Attestations NPU Medical Necessity Statement*: Inpatient hospitalization is medically necessary to be clinically appropriate event and at this time. Will monitor medications and make changes as indicated. Likely length of stay 1 to 2 days. Coding Level of Care Code Acute Cloth Shrinking Machine Operator for Severino Rutherford
[2020-10-31 20:08] VITALS: BP 130/87; PULSE 78; RESP 18; TEMP 36.9; O2SAT 94
[2020-10-31] MEDS: quetiapine XR (24HR) 50 mg Tablet 200 MG PO (21:18)
[2020-10-31] MEDS: trazodone 50 mg Tablet PO (21:20)
--- NOTE | 2020-10-31 21:20 | PC.NURSE ---
pt requested sleep med. Traodone 50mg given.
[2020-11-01 06:00] VITALS: BP 123/83; PULSE 75; RESP 19; TEMP 36.9; O2SAT 94
[2020-11-01] MEDS: propranolol 20 mg Tablet 10 MG PO ×3 (08:52→21:45)
[2020-11-01] MEDS: hyDROXYzine 25 mg Capsule 100 MG PO ×3 (08:52→21:44)
[2020-11-01] MEDS: hydroCHLOROthiazide 25 mg Tablet 12.5 MG PO (08:53)
[2020-11-01] MEDS: lamoTRIgine 25 mg Tablet PO (08:53)
[2020-11-01] MEDS: sertraline 50 mg Tablet PO (08:53)
[2020-11-01] MEDS: naproxen 500 mg Tablet PO ×2 (08:53→21:46)
[2020-11-01] MEDS: gabapentin 300 mg Capsule PO ×3 (08:54→21:46)
[2020-11-01] MEDS: lisinopril 10 mg Tablet PO (08:54)
[2020-11-01] MEDS: nicotine 2 mg Gum BUCCAL ×5 (09:50→21:45)
--- NOTE | 2020-11-01 13:21 | PM.NPN ---
Subjective NPU Subjective: Interval history: I met with the patient in his room today. He remains hesitant about returning home, but he feels that he will be confident in returning home tomorrow. His primary worry is the lack of structure in his daily life at home. The patient states that excluding his worry about his home life he has a generally positive outlook. <GRAYSON Pickering STDNT - Last Filed: 11/01/20 13:27> Mental Status Exam MSE Comments: The patient is a morbidly obese white male in hospital scrubs with limited grooming and adequate eye contact. No psychomotor retardation or agitation. Speech was of normal rate and volume. Mood described as anxious. Affect congruent. Thought process organized. Patient denies suicidal or homicidal ideation, paranoia, and auditory or visual hallucinations. Attention and concentration were intact. Memory appears intact. Insight, judgment, and impulse control appear appropriate. <Carlitos De Santiago MED STDNT - Last Filed: 11/01/20 13:27> Vitals/I&O/Wt Last Vital Signs Temp 98.4 F 11/01/20 06:00 Pulse 75 11/01/20 06:00 Resp 19 H 11/01/20 06:00 BP 123/83 11/01/20 06:00 Pulse Ox 94 11/01/20 06:00 <Carlitos De Santiago MED STDNT - Last Filed: 11/01/20 13:27> A&P Assessment and plan (1) Major depressive disorder, recurrent severe without psychotic features: Continue 50 mg of Zoloft. <Carlitos De Santiago MED STDNT - Last Filed: 11/01/20 13:27> Status: Acute <Carlitos De Santiago MED STDNT - Last Filed: 11/01/20 13:27> (2) Anxiety disorder, unspecified: See above <Carlitos De Santiago MED STDNT - Last Filed: 11/01/20 13:27> Status: Acute <Carlitos De Santiago MED STDNT - Last Filed: 11/01/20 13:27> (3) Schizoaffective disorder, depressive type: History of schizoaffective disorder and schizophrenia. Will continue to evaluate for signs and symptoms of these disorders. <Carlitos De Santiago MED STDNT - Last Filed: 11/01/20 13:27> Status: Suspected <GRAYSON Pickering STDNT - Last Filed: 11/01/20 13:27> Additional A&P Information Nomi Das is a 30 year old male with a history of schizoaffective disorder and suicidal ideation who was transferred from [facility]. He has had diagnoses of schizophrenia and schizoaffective disorder in the past. It appears that he he has intense negative self talk rather than hallucinations. More accurate diagnosis are probably depression and anxiety. RECOMMENDATION AND PLAN: 1. We will continue medications. 2. Continue every 15 minute checks for safety. 3. Encourage individual, group and milieu therapies. 4. Encourage sober living treatment after discharge at the highest level of care to which he is willing to commit. <GRAYSON Pickering STDNT - Last Filed: 11/01/20 13:27> Involuntary Hold Information 96 Hour Hold: 96 Hour Involuntary Admission: No <GRAYSON Pickering STDNT - Last Filed: 11/01/20 13:27> Attestations NPU Medical Necessity Statement*: . <GRAYSON Pickering STDNT - Last Filed: 11/01/20 13:27> Inpatient hospitalization is medically necessary to be clinically appropriate event and at this time. Will monitor medications and make changes as indicated. Likely length of stay 1 to 2 days. <Lennox Valentin MD - Last Filed: 11/02/20 06:53> Other Attestations: Other Attestations: Spoke with patient independently and reviewed case with medical student and agree with documentation above. Except that after the middle school student left, patient started talking about having suicidal thoughts and being fearful of how he might respond if discharged. It is unclear whether he is actively feeling this way or understanding that these kinds of statements might increase the likelihood that it might delay his discharge home. The is open about his home environment being a bad situation but continues to defend against the idea that he is saying these things so he does not have to go home. I told him that I was unsure if this would have any impact on the discharge time tomorrow and that I would meet with the treatment team to consider all options prior to rendering a decision about this situation. We may need to discuss a longterm because it does not seem likely that there is any actual medication intervention that we are going to give that going to change his outcome at the moment that discharge is pending. <Lennox Valentin MD - Last Filed: 11/02/20 06:53> Coding Level of Care Code Acute Pattern Designer for g Fwd Diagnoses Major depressive disorder, recurrent severe without psychotic features F33.2 Anxiety disorder, unspecified F41.9 Schizoaffective disorder, depressive type F25.1
[2020-11-01 14:00] VITALS: BP 95/59; PULSE 74; RESP 17; TEMP 36.6; O2SAT 96
[2020-11-01] MEDS: quetiapine XR (24HR) 50 mg Tablet 200 MG PO (21:44)
--- NOTE | 2020-11-01 21:45 | PC.NURSE ---
PT REQUESTED SLEEP MED, TRAZODONE 50MG PO GIVEN.
[2020-11-01] MEDS: trazodone 50 mg Tablet PO (21:46)
[2020-11-01 22:00] VITALS: BP 134/96; PULSE 113; RESP 18; TEMP 36.6; O2SAT 92
--- NOTE | 2020-11-01 23:00 | PC.NURSE ---
PT RESTING QUIETLY WITH BOTH EYES CLOSED.
[2020-11-02] MEDS: OLANZapine 5 mg ODT PO (01:44)
--- NOTE | 2020-11-02 01:45 | PC.NURSE ---
PT CAME TO DESK REQUESTING SOMETHING FOR MY SUCIDAL THOUGHTS . ZYPREXA ZYDIS 5MG SL GIVEN.
--- NOTE | 2020-11-02 02:30 | PC.NURSE ---
PT RESTING QUIETLY WITH BOTH EYES CLOSED.
[2020-11-02 06:00] VITALS: BP 134/96; PULSE 113; RESP 18; TEMP 36.6; O2SAT 92
[2020-11-02] MEDS: sertraline 50 mg Tablet PO (08:50)
[2020-11-02] MEDS: lamoTRIgine 25 mg Tablet PO (08:50)
[2020-11-02] MEDS: lisinopril 10 mg Tablet PO (08:50)
[2020-11-02] MEDS: naproxen 500 mg Tablet PO (08:50)
[2020-11-02] MEDS: propranolol 20 mg Tablet 10 MG PO ×2 (08:50→14:22)
[2020-11-02] MEDS: hydroCHLOROthiazide 25 mg Tablet 12.5 MG PO (08:50)
[2020-11-02] MEDS: gabapentin 300 mg Capsule PO ×2 (08:51→14:23)
[2020-11-02] MEDS: hyDROXYzine 25 mg Capsule 100 MG PO ×2 (08:51→14:22)
--- NOTE | 2020-11-02 11:16 | PM.NPN ---
Subjective NPU Subjective: Interval history: I met with the patient in the day room. Despite his claims that he would be ready to leave today, the patient is now adamant that he should not be discharged. It is apparent that he is anxious about returning home and when questioned about that he endorses the thought that his living situation and stress to his life. He reports concerning responses on almost every category of the mental status exam, but when asked if those answers would change if I told him discharge was delayed until Saturday the patient said yes. Upon further inquiry I have concerns that his answers to the mental status exam were correlated to his goal of avoiding discharge. When questioned about whether a senior living would provide a better living situation then returning to the home he shares with his family, the patient says he would rather return home. The patient's increase in anxiety today relative to yesterday is directly linked to the thought of discharge. <Carlitos [employer] [facility] [facility] STDNT - Last Filed: 11/02/20 11:26> Mental Status Exam MSE Comments: The patient is a morbidly obese white male in hospital scrubs with limited grooming and adequate eye contact. No psychomotor retardation or agitation. Speech was of normal rate and elevated volume. Mood described as bad. Affect irritable. Thought process organized. The patient endorses suicidal and homicidal ideation, paranoia, but not auditory or visual hallucinations. When directly questioned whether the suicidal or homicidal ideation expressed would marsha if discharge was moved the patient said yes. It is my belief that if discharge were delayed that the same situation would arise on the new date. Attention and concentration were intact to exam as well as memory. However the patient believes that his attention concentration and memory are all much worse than his first day here. Insight, judgment, and impulse control appear appropriate. <Carlitos [employer] [facility] STDNT - Last Filed: 11/02/20 11:26> Vitals/I&O/Wt Last Vital Signs Temp 97.9 F 11/02/20 06:00 Pulse 113 H 11/02/20 06:00 Resp 18 11/02/20 06:00 BP 134/96 11/02/20 06:00 Pulse Ox 92 11/02/20 06:00 <Carlitos [employer] [facility] STDNT - Last Filed: 11/02/20 11:26> A&P Assessment and plan (1) Major depressive disorder, recurrent severe without psychotic features: Continue 50 mg of Zoloft. <GRAYSON Pickering STDNT - Last Filed: 11/02/20 11:26> Status: Deleted <GRAYSON Pickering STDNT - Last Filed: 11/02/20 11:26> (2) Anxiety disorder, unspecified: See above <GRAYSON Pickering STDNT - Last Filed: 11/02/20 11:26> Status: Acute <GRAYSON Pickering STDNT - Last Filed: 11/02/20 11:26> (3) Schizoaffective disorder, depressive type: History of schizoaffective disorder and schizophrenia. Will continue to evaluate for signs and symptoms of these disorders. <GRAYSON Pickering STDNT - Last Filed: 11/02/20 11:26> Status: Suspected <GRAYSON Pickering STDNT - Last Filed: 11/02/20 11:26> Additional A&P Information Nomi Das is a 30 year old male with a history of schizoaffective disorder and suicidal ideation who was transferred from [facility]. He has had diagnoses of schizophrenia and schizoaffective disorder in the past. It appears that he he has intense negative self talk rather than hallucinations. More accurate diagnosis are probably depression and anxiety. RECOMMENDATION AND PLAN: 1. We will continue medications. 2. Continue every 15 minute checks for safety. 3. Encourage individual, group and milieu therapies. 4. Encourage sober living treatment after discharge at the highest level of care to which he is willing to commit. <Carlitos De Santiago GRAYSON STDNT - Last Filed: 11/02/20 11:26> Involuntary Hold Information 96 Hour Hold: 96 Hour Involuntary Admission: No <Carlitos De Santiago GRAYSON STDNT - Last Filed: 11/02/20 11:26> Attestations NPU Medical Necessity Statement*: . <GRAYSON Pickering STDNT - Last Filed: 11/02/20 11:26> Inpatient hospitalization is no longer medically necessary for the clinically appropriate intervention at this time. Patient is in a tough situation with limited to no resources and absent a desire to return to this living arrangement. He also has limited coping skills making this a tough situation. However we have no clear criteria to keep him and he was offered senior living option which he refused. <Lennox Valentin MD - Last Filed: 11/04/20 05:46> Other Attestations: Other Attestations: Spoke with patient independently and reviewed case with medical student and agree with documentation above. It is unclear whether he is actively feeling this way or understanding that these kinds of statements might increase the likelihood that it might delay his discharge home. We are all clear that his home environment is not his desired option to live, but he continues to defend against the idea that he is saying these things so he does not have to go home. He was offered the option of a senior living as a bridge to his desired new living arrangement, which he refused. He accepted the fact that he would have to at least give returning home a try. <Lennox Valentin MD - Last Filed: 11/04/20 05:46> Coding Level of Care Code Acute Manager Credit Risk for Chg Fwd Diagnoses Major depressive disorder, recurrent severe without psychotic features F33.2 Anxiety disorder, unspecified F41.9 Schizoaffective disorder, depressive type F25.1
[2020-11-02 13:53] VITALS: BP 134/83; PULSE 77; RESP 18; TEMP 36.8; O2SAT 96
[2020-11-02] MEDS: nicotine 2 mg Gum BUCCAL (14:04)
--- NOTE | 2020-11-02 15:04 | P.DS_ITS ---
Diagnoses at Discharge Discharge Diagnosis (1) Major depressive disorder, recurrent severe without psychotic features: Status: Deleted (2) Anxiety disorder, unspecified: Status: Acute (3) Schizoaffective disorder, depressive type: Status: Suspected Reason for Visit Reason for Visit: SI/Depression Brief History: History of Present Illness Nomi Das is a 30 year old male with a history of depression and suicidal ideation arriving from [facility]. The ER note states: Patient was released from a psych facility approximately 10 days ago. States that he did not get his medications filled at discharge because his father wouldn't pay for them. he states that he has had thoughts of overdosing on flexeril. Other records state: EtOH negative, Acetaminophen negative, negative: amphetamines, barbiturates, benzodiazepines, cocaine, marijuana, opiates. The patient reports feeling ups and downs more frequently in the past two months. He denies suicidal ideation today but admits previous suicidal ideation related to this admission. He no longer drinks but reports that he used to drink 1 pint of whiskey per day up to three months ago when he quit because he could no longer pay for it. He denies using or a history of using any illicit drugs. He says that his primary stressors are living with his father, father's girlfriend, girlfriend's family (4 people) and financial problems. The patient has a history of taking the medications listed below but has not been adherent due to a lack of access. The patient was diagnosed with schizoaffective disorder at the age of 17 or 18. The patient has been admitted for psychiatric reasons 6 times: 2 times for suicide attempts as a minor, 5 years ago for a suicide attempt, and 4 times since August 2020 for suicidal ideation and depression. 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 The patient states he hopes to be placed in an F because he feels it will be more structured than his current living situation and that he needs that structure in order to stay well. Psychiatric history: as above Substance use history: as above Family history: The patient denies any history of treated or untreated mental conditions in his family as well as denies suicide attempts or completion in the family. 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 <Carlitos Ellenburg, MED STDNT - Last Filed: 10/26/20 11:29> Pt seen with student. Agree with above. <Arthur Swenson MD - Last Filed: 10/27/20 09:50> Hospital Course Hospital Course He slowly acclimated to the individual, group and milieu therapies provided. Zyprexa, Zoloft and Neurontin were initiated and titrated to effect. He had slow but limited improvement. The improvement appeared to be put in jeopardy every time discharge was considered. We continued to discuss the fact that everyone was in agreement that his home situation was not preferable to him and that he has a plan for some kind of a intermediate setting but that we do not have the ability to hold him indefinitely for housing considerations. The day prior to acknowledged discharge date he would say he believes he be okay and then on the day of discharge all of that would crumble. We discussed the fact that he would just have to manage for the next month or 2 awaiting Medicaid and some sort of placement and he reported that he would give that a try. During the hospitalization, patient had routine laboratory studies which were within normal limits except for few outliers. Additionally there was a general medical evaluation which was also within normal limits and revealed no new acute processes. Discharge Summary: At the time of discharge, he was absent psychosis. Mood and anxiety were well managed. Patient endorsed a plan to avoid all drugs of abuse and follow-up with the aftercare recommendations of the treatment team. Patient was evaluated and deemed to be absent credible lethality, and had achieved the maximum benefit from an inpatient hospitalization, so was discharged. Involuntary Hold Information 96 Hour Hold: 96 Hour Involuntary Admission: No Mental Status Exam MSE Comments: The patient is a morbidly obese white male in hospital scrubs with limited grooming and adequate eye contact. No psychomotor retardation or agitation. Speech was of normal rate and elevated volume. Mood described as bad. Affect irritable. Thought process organized. The patient endorses suicidal and homicidal ideation, paranoia, but not auditory or visual hallucinations. When directly questioned whether the suicidal or homicidal ideation expressed would marsha if discharge was moved the patient said yes. It is my belief that if discharge were delayed that the same situation would arise on the new date. Attention and concentration were intact to exam as well as memory. However the patient believes that his attention concentration and memory are all much worse than his first day here. Insight, judgment, and impulse control appear appropriate. Discharge Data Vitals: Last Vital Signs Temp 98.2 F 11/02/20 13:53 Pulse 77 11/02/20 13:53 Resp 18 11/02/20 13:53 BP 134/83 11/02/20 13:53 Pulse Ox 96 11/02/20 13:53 Discharge Plan Discharge Patient Disposition: Home Condition: Stable Prescriptions: New trazodone 50 mg Tablet 50 mg PO BEDTIME PRN (Reason: Sleep) 30 Days Qty: 30 RF: 1 sertraline 100 mg tablet 100 mg PO DAILY 30 Days Qty: 30 RF: 1 gabapentin 300 mg Capsule 300 mg PO TID 30 Days Qty: 90 RF: 1 olanzapine [Zyprexa] 5 mg tablet 5 mg PO BEDTIME 30 Days Qty: 30 RF: 1 Continued cyclobenzaprine 10 mg Tablet 10 mg PO TID PRN (Reason: Back Pain) RF: 0 hydroxyzine pamoate 100 mg Capsule 100 mg PO TID RF: 0 lamotrigine [Lamictal] 25 mg Tablet 25 mg PO DAILY RF: 0 propranolol 10 mg Tablet 10 mg PO DAILY RF: 0 lisinopril-hydrochlorothiazide 10-12.5 mg Tablet 1 tab PO DAILY RF: 0 quetiapine [Seroquel XR] 200 mg Tablet Extended Release 24 Hr 200 mg PO BEDTIME RF: 0 Discharge Orders: Discharge Order (Routine); Ordered 11/02/20 Ordered By: Lennox Valentin Referrals: [facility] [Other] (Call to inquire about admissions process. ) [facility] [Other] - 11/07/20 11:20 am (Appointment with Dr. Tsang on 11/07/20 at 11:20am.) Discharge Diet: Regular Discharge Activity: Resume usual activity Patient Instructions: Trazodone (By mouth), Sertraline (By mouth), Gabapentin (By mouth), Anxiety (DC), Opioid Safety Discharge Attestations NPU Time Spent in Discharge Care*: greater than 30 min Specific Discharge Activities: Specific discharge activities: educating patient, discussing with comp field case manager/social workers/dc planners, documenting/other paperwork and evaluating patient/reviewing data Coding Level of Care Code Acute Chg FW DC note Diagnoses Major depressive disorder, recurrent severe without psychotic features F33.2 Anxiety disorder, unspecified F41.9 Schizoaffective disorder, depressive type F25.1
[2020-11-02 15:16] VITALS: BP 134/83; PULSE 77; RESP 18; TEMP 36.8; O2SAT 96
== END 2020-11-02 15:49 | disposition home or self-care (01) | DRG 885 ==
PROVIDERS: Admitting Provider Psychiatry & Neurology Child & Adolescent Psychiatry; Visit Provider Psychiatry & Neurology Psychiatry
DX: F33.2 Major depressive disorder, recurrent severe without psychotic features (principal); Z68.43 Body mass index [BMI] 50.0-59.9, adult; I10 Essential (primary) hypertension; F41.9 Anxiety disorder, unspecified; F25.1 Schizoaffective disorder, depressive type; E66.01 Morbid (severe) obesity due to excess calories; Z81.8 Family history of other mental and behavioral disorders; Z98.890 Other specified postprocedural states; Z88.0 Allergy status to penicillin; Z88.2 Allergy status to sulfonamides
CPT/HCPCS: Q0162

== ENCOUNTER 2020-11-02 16:08 | Inpatient (IN) | payer MEDICAID, SELFPAY ==
[2020-11-02 16:40] VITALS: BP 151/80; PULSE 98; RESP 18; TEMP 37.2; O2SAT 95; BMI 50.0
[2020-11-02 17:13] VITALS: BP 161/93; PULSE 106; RESP 18; TEMP 36.8; O2SAT 96
--- NOTE | 2020-11-02 17:13 | PC.NURSE ---
Assumed care of this patient at 1700.
--- NOTE | 2020-11-02 17:21 | W.ED.PSYCH ---
HPI - Psych General: Chief Complaint: Psychiatric Symptoms Stated Complaint: SI Time Seen by Provider: 11/02/20 17:08 History of Present Illness: HPI Narrative: Patient is a 30-year-old male comes to the ED with SI and HI. Patient was just discharged from the stress unit here at [facility] and immediately came here to the ED for evaluation for continuing thoughts of SI and HI. Patient says he has a plan of using a knife to hurt some of the people that live at his house and then said he will slit his wrist. Patient says he is worried that he is going to act on his thoughts if he goes home. Associated symptoms: Reports homicidal ideation and suicidal ideation; Deny auditory hallucinations or visual hallucinations Review of Systems Const: Denies: fever(s), chills or fatigue Eyes: Denies: change in vision or eye discomfort ENMT: Denies: throat pain, odynophagia, nasal discharge or nasal congestion Card: Denies: chest pain, palpitations, edema, swelling of feet/ankles, dyspnea on exertion or orthopnea Resp: Denies: dyspnea, productive cough or non-productive cough GI: Denies: abdominal pain, nausea, vomiting, diarrhea, constipation or hematochezia : Denies: flank pain, difficulty urinating, dysuria or hematuria Musc: Denies: neck pain, back pain or extremity swelling Skin/Breast: Denies: rash or new lesions Neuro: Denies: headache(s), numbness in extremities or weakness in extremities Psych: Reports: suicidal ideation and homicidal ideation; Denies: visual hallucinations or auditory hallucinations [facility] ED PFSH: Medical History Schizoaffective disorder, depressive type Physical Exam Const: COMMON NORMALS: no acute distress, patient oriented x3 and alert GENERAL APPEARANCE: cooperative and comfortable HENMT: COMMON NORMALS: normocephalic HEAD & SCALP: normocephalic MOUTH: Normal oral and palatal mucosa present THROAT: posterior oropharynx normal and uvula midline Neck/C-Spine: COMMON NORMALS: supple GENERAL: Yes normal visual inspection Resp: COMMON NORMALS: normal respiratory effort, No retractions, No use of accessory muscles and clear to auscultation bilaterally AUSCULTATION: clear to auscultation bilaterally Cardio: COMMON NORMALS: regular rate, regular rhythm, S1 normal heart sound present, S2 normal heart sound present, No gallops present (Cardio), No clicks present (Cardio), No murmurs present (Cardio) and Peripheral pulses 2+ throughout RATE: regular rate RHYTHM: regular rhythm HEART SOUNDS: S1 normal heart sound present and S2 normal heart sound present PERIPHERAL PULSES: Peripheral pulses 2+ throughout GI: COMMON NORMALS: Normal to inspection, nondistended, normoactive bowel sounds present, Soft to palpation, non-tender and no masses PALPATION: Yes Soft to palpation : COMMON NORMALS: Yes no CVA tenderness BLADDER/KIDNEY EXAM: Yes no CVA tenderness Back/Pelvis: COMMON NORMALS: no CVA tenderness Neuro: COMMON NORMALS: patient oriented x3 and moves all extremities SENSORIUM/ORIENTATION: Yes alert Psych: COMMON NORMALS: Normal thought process present and speech normal APPEARANCE: Yes grossly normal ATTITUDE: Yes calm ACTIVITY/MOTOR BEHAVIOR: Yes appropriate eye contact SPEECH: Yes normal speech THOUGHT PROCESS: Normal thought process present THOUGHT CONTENT: Yes Suicidality present, Yes Homicidality present and No Hallucination(s) present ATTENTION/CONCENTRATION: Yes attention grossly intact and Yes concentration grossly intact MEMORY/COGNITION: Yes memory grossly intact and Yes cognition grossly intact INSIGHT: Fair insight present (Psych) JUDGEMENT: Fair judgement present (Psych) Skin: GENERAL SKIN EXAM: dry skin Course Consultations: Consultation #1: I contacted Dr. Valentin and told him about patient case. He was going to do a video conference with patient here in the ED and then determine a plan. After video conference Dr. Valentin wanted patient to be admitted into the stress unit. Time: 18:30 Vital Signs: Vital signs: Vital Signs Temperature 98.4 F 11/02/20 20:55 Pulse Rate 101 H 11/02/20 20:55 Respiratory Rate 20 H 11/02/20 20:55 Blood Pressure 156/114 11/02/20 20:55 Pulse Oximetry 94 11/02/20 20:55 MDM - Psych MDM Narrative: Medical decision making narrative: Patient is a 30-year-old male who comes to the ED with homicidal ideation and suicidal ideation. He was just discharged from stress unit today and then came directly here to the ED for evaluation due to continued suicidal and homicidal thoughts. I contacted Dr. Valentin and told him about patient case. Dr. Valentin then did a televisit with patient here in the ED. After his televisit he told me to have patient admitted to the stress unit. Also screening labs were performed and patient was cleared for admission to the NPU. Lab Data: Attestation: I reviewed the patient's lab results. Labs: Lab Results 11/02/20 11/02/20 11/02/20 Range/Units 15:01 18:20 18:20 WBC 8.5 (4.0-10.0) 10^3/ uL RBC 5.28 (4.1-5.3) 10^6/u L Hgb 15.5 (11.7-16.6) g/dL Hct 43.9 (42.0-52.0) % MCV 83.1 (80-94) fl MCH 29.4 (28.0-34.0) pg MCHC 35.3 (30.0-36.0) g/dL RDW 12.4 (12.1-15.1) % Plt Count 320 (130-400) 10^3/c mm MPV 9.5 (7.4-10.4) fL Neut % (Auto) 70.2 % Lymph % (Auto) 18.7 % Early % (Auto) 7.5 % Eos % (Auto) 2.6 % Baso % (Auto) 0.5 % Neut # (Auto) 6.00 (1.8-7.7) 10^3/u L Lymph # (Auto) 1.6 (0.8-4.8) 10^3/u L Early # (Auto) 0.6 (0.2-0.9) 10^3/u L Eos # (Auto) 0.2 (0.0-0.8) 10^3/u L Baso # (Auto) 0.0 (0.0-0.1) 10^3/u L Nucleated RBC % (a uto) 0 % Nucleated RBCs # 0.0 /100WBC Sodium 139 (136-145) mmol/L Potassium 4.1 (3.5-5.1) mmol/L Chloride 100 (98-107) mmol/L Carbon Dioxide 27 (22-29) mmol/L Anion Gap 16.1 (5-19) BUN 12 (6-20) mg/dL Creatinine 0.8 (0.7-1.2) mg/dL GFR Calculation 113.5 (90-130) mL/min Glucose 86 (65-115) mg/dL Calculated Osmolal ity 287 (285-295) mOsm/k g Calcium 9.3 (8.5-10.5) mg/dL Total Bilirubin 0.5 (0.15-1.2) mg/dL AST 33 (0-40) U/L ALT 78 H (0-41) U/L Alkaline Phosphata se 122 (40-130) IU/L Total Protein 7.3 (6.6-8.7) g/dL Albumin 4.5 (3.5-5.2) g/dL Globulin 2.8 (1.3-4.6) g/dL Salicylates 0.5 L (3-10) mg/dL Urine Opiates Scre en Negative (Negative) ng/mL Acetaminophen < 5.0 L (10-30) ug/mL Ur Barbiturates Sc reen Negative (Negative) ng/mL Ur Phencyclidine S crn Negative (Negative) ng/mL Ur Amphetamines Sc reen Negative (Negative) ng/mL U Benzodiazepines Scrn Negative (Negative) ng/mL Urine Cocaine Scre en Negative (Negative) ng/mL U Marijuana (THC) Screen Negative (Negative) ng/mL Ethyl Alcohol < 10 (0-10) mg/dL Discharge Plan Discharge Patient Disposition: Admitted As Inpatient Admit Provider: Lennox Valentin Clinical Impression: Suicidal ideation Condition: Stable Coding Level of Care Code ED Rib Cloth Knitter for [facility] Fwd Exam Comprehensive
[2020-11-02 18:25] LABS: Basophils % 0.5 %; Eosinophils # 0.2 10^3/uL (0.0-0.8); Eosinophils % 2.6 %; Hematocrit 43.9 % (42.0-52.0); Hemoglobin 15.5 g/dL (11.7-16.6); Lymphocytes # 1.6 10^3/uL (0.8-4.8); Lymphocytes % 18.7 %; Mean Corpuscular HGB Conc 35.3 g/dL (30.0-36.0); Mean Corpuscular Hemoglobin 29.4 pg (28.0-34.0); Mean Corpuscular Volume 83.1 fl (80-94); Mean Platelet Volume 9.5 fL (7.4-10.4); Monocytes # 0.6 10^3/uL (0.2-0.9); Monocytes % 7.5 %; Neutrophils % 70.2 %; Nucleated Red Blood Cells % 0 %; Platelet Count 320 10^3/cmm (130-400); Red Blood Count 5.28 10^6/uL (4.1-5.3); Red Cell Distribution Width 12.4 % (12.1-15.1); White Blood Count 8.5 10^3/uL (4.0-10.0)
--- NOTE | 2020-11-02 18:25 | PM.NHP ---
Providers/Chief Complaint Admitting Physician: Lennox Valentin MD Chief Complaint: SI HPI NPU History of Present Illness Nomi Das is a 30 year old male who presented to the emergency department with the following report: Chief Complaint: Psychiatric Symptoms Stated Complaint: SI Time Seen by Provider: 11/02/20 17:08 History of Present Illness: HPI Narrative: Patient is a 30-year-old male comes to the ED with SI and HI. Patient was just discharged from the stress unit here at [facility] and immediately came here to the ED for evaluation for continuing thoughts of SI and HI. Patient says he has a plan of using a knife to hurt some of the people that live at his house and then said he will slit his wrist. Patient says he is worried that he is going to act on his thoughts if he goes home. Associated symptoms: Reports homicidal ideation and suicidal ideation; Deny auditory hallucinations or visual hallucinations. He was discharged from the neuropsychiatric unit moments ago and presented to the emergency department endorsing suicidal and homicidal intentions. Psychiatric consult was requested for specialist evaluation of these issues. Nomi presents reporting that he cannot go home. He reports that he goes home there were 2 specific people he would kill and that he would kill himself. We had a lengthy discussion about his unwillingness to accept a residential/bridge housing therapeutic option as well which she argued that he was not stable enough to be in that kind of environment. After continued discussion about his circumstance it was clear that he would not consider the clear alternatives to his current positioning. Per his 11/02/2020 [facility] inpatient discharge summary: Discharge Diagnosis (1) Major depressive disorder, recurrent severe without psychotic features: Status: Deleted (2) Anxiety disorder, unspecified: Status: Acute (3) Schizoaffective disorder, depressive type: Status: Suspected Reason for Visit Reason for Visit: SI/Depression Brief History: History of Present Illness Nomi Das is a 30 year old male with a history of depression and suicidal ideation arriving from [facility]. The ER note states: Patient was released from a psych facility approximately 10 days ago. States that he did not get his medications filled at discharge because his father wouldn't pay for them. he states that he has had thoughts of overdosing on flexeril. Other records state: EtOH negative, Acetaminophen negative, negative: amphetamines, barbiturates, benzodiazepines, cocaine, marijuana, opiates. The patient reports feeling ups and downs more frequently in the past two months. He denies suicidal ideation today but admits previous suicidal ideation related to this admission. He no longer drinks but reports that he used to drink 1 pint of whiskey per day up to three months ago when he quit because he could no longer pay for it. He denies using or a history of using any illicit drugs. He says that his primary stressors are living with his father, father's girlfriend, girlfriend's family (4 people) and financial problems. The patient has a history of taking the medications listed below but has not been adherent due to a lack of access. The patient was diagnosed with schizoaffective disorder at the age of 17 or 18. The patient has been admitted for psychiatric reasons 6 times: 2 times for suicide attempts as a minor, 5 years ago for a suicide attempt, and 4 times since August 2020 for suicidal ideation and depression. 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 The patient states he hopes to be placed in an RCF because he feels it will be more structured than his current living situation and that he needs that structure in order to stay well. Psychiatric history: as above Substance use history: as above Family history: The patient denies any history of treated or untreated mental conditions in his family as well as denies suicide attempts or completion in the family. 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 <GRAYSON Pickering STDGERA - Last Filed: 10/26/20 11:29> Pt seen with student. Agree with above. <Arthur Swenson MD - Last Filed: 10/27/20 09:50> Hospital Course He slowly acclimated to the individual, group and milieu therapies provided. Zyprexa, Zoloft and Neurontin were initiated and titrated to effect. He had slow but limited improvement. The improvement appeared to be put in jeopardy every time discharge was considered. We continued to discuss the fact that everyone was in agreement that his home situation was not preferable to him and that he has a plan for some kind of a fdc setting but that we do not have the ability to hold him indefinitely for housing considerations. The day prior to acknowledged discharge date he would say he believes he be okay and then on the day of discharge all of that would crumble. We discussed the fact that he would just have to manage for the next month or 2 awaiting Medicaid and some sort of placement and he reported that he would give that a try. During the hospitalization, patient had routine laboratory studies which were within normal limits except for few outliers. Additionally there was a general medical evaluation which was also within normal limits and revealed no new acute processes. Discharge Summary: At the time of discharge, he was absent psychosis. Mood and anxiety were well managed. Patient endorsed a plan to avoid all drugs of abuse and follow-up with the aftercare recommendations of the treatment team. Patient was evaluated and deemed to be absent credible lethality, and had achieved the maximum benefit from an inpatient hospitalization, so was discharged. Meds NPU Home Medications Medication Instructions Recorded Confirmed Last Taken Type cyclobenzaprine 10 mg PO TID PRN 10/24/20 11/02/20 Unknown History hydroxyzine pamoate 100 mg PO TID 10/24/20 11/02/20 Unknown History lamotrigine [Lamictal] 25 mg PO DAILY 10/24/20 11/02/20 Unknown History lisinopril-hydrochlorothiazide 1 tab PO DAILY 10/24/20 11/02/20 Unknown History propranolol 10 mg PO DAILY 10/24/20 11/02/20 Unknown History quetiapine [Seroquel XR] 200 mg PO BEDTIME 10/24/20 11/02/20 Unknown History gabapentin 300 mg PO TID 30 Days #90 cap 11/02/20 11/02/20 Unknown Rx olanzapine [Zyprexa] 5 mg PO BEDTIME 30 Days #30 tab 11/02/20 11/02/20 Unknown Rx sertraline 100 mg PO DAILY 30 Days #30 tab 11/02/20 11/02/20 Unknown Rx trazodone 50 mg PO BEDTIME PRN 30 Days #30 11/02/20 11/02/20 Unknown Rx tab Allergies Allergy/AdvReac Type Severity Reaction Status Date / Time Penicillins Allergy Unknown Verified 10/24/20 23:46 Sulfa (Sulfonamide Allergy Unknown Verified 10/24/20 23:46 Antibiotics) PFSH NPU PFSH: Medical History Schizoaffective disorder, depressive type Mental Status Exam MSE Comments: The patient is a morbidly obese white male in hospital scrubs with limited grooming and adequate eye contact. No abnormal movements except for mild psychomotor agitation. Cooperative with exam in moderate to extreme distress. Speech was of normal rate and elevated volume. Mood described as depressed, affect tearful. Thought process organized. The patient endorses suicidal and homicidal ideation, there were no delusions reported or noted, he did endorse some increase in auditory but denied visual hallucinations. Attention and concentration were intact and memory appeared reliable but none were formally tested. He is alert and oriented x3. Insight and judgment appears limited and impulse control appears impaired. Vitals/I&O/Wt Last Vital Signs Temp 98.3 F 11/02/20 17:13 Pulse 106 H 11/02/20 17:13 Resp 18 11/02/20 17:13 BP 161/93 11/02/20 17:13 Pulse Ox 96 11/02/20 17:13 Weight last 48 hrs Weight 181.437 kg Data NPU : 11/02/20 18:20 11/02/20 18:20 A&P Assessment and plan (1) Suicidal ideation: Status: Acute (2) Schizoaffective disorder, depressive type: Status: Suspected (3) Anxiety disorder, unspecified: Status: Acute (4) Homicidal ideation: Status: Acute (5) Autistic spectrum disorder: Status: Acute Additional A&P Information This is a 30-year-old white male just discharged earlier today who presents back with reports of suicidal homicidal ideation against the backdrop of not feeling capable of returning to his previous living arrangement. He has limited social skills and limited coping mechanisms and made threats to 2 specific people in the home reporting a plan for murder suicide. Given the current level of emotional dysregulation sending him home could prove dangerous. 1. Continue current medication. 2. Continue every 15 minute checks for safety. 3. Encourage individual, group and milieu therapies. 4. Encourage sober living treatment after discharge at the highest level of care to which he is willing to commit. Involuntary Hold Information 96 Hour Hold: 96 Hour Involuntary Admission: No Attestations NPU Medical Necessity Statement*: Inpatient hospitalization is medically necessary and the clinically appropriate intervention at this time. We will monitor medications and make changes as indicated. Patient will be in the hospital for over two midnights. Likely length of stay 3 to 5 days. Coding Level of Care Code Acute Grease Remover for [facility] Fwd Diagnoses Suicidal ideation R45.851 Schizoaffective disorder, depressive type F25.1 Anxiety disorder, unspecified F41.9 Homicidal ideation R45.850 Autistic spectrum disorder F84.0
[2020-11-02 18:32] LABS: Amphetamines Screen Urine Negative (Negative); Barbiturates Screen Urine Negative (Negative); Benzodiazepines Screen Urine Negative (Negative); Cocaine Screen Urine Negative (Negative); Opiate Screen Urine Negative (Negative); PCP Screen Urine Negative (Negative); THC Screen Urine Negative (Negative)
[2020-11-02 18:47] LABS: Alanine Aminotransferase 78 U/L (0-41); Albumin Level 4.5 g/dL (3.5-5.2); Alkaline Phosphatase 122 IU/L (40-130); Anion Gap 16.1 (5-19); Aspartate Amino Transferase 33 U/L (0-40); Blood Urea Nitrogen 12 mg/dL (6-20); Calcium 9.3 mg/dL (8.5-10.5); Carbon Dioxide 27 mmol/L (22-29); Chloride 100 mmol/L (98-107); Globulin 2.8 g/dL (1.3-4.6); Glomerular Filtration Rate 113.5 mL/min (90-130); Glucose 86 mg/dL (65-115); Osmolality Calculated 287 mOsm/kg (285-295); Potassium 4.1 mmol/L (3.5-5.1); Salicylate 0.5 mg/dL (3-10); Sodium 139 mmol/L (136-145); Total Bilirubin 0.5 mg/dL (0.15-1.2); Total Protein 7.3 g/dL (6.6-8.7)
[2020-11-02 18:57] LABS: Acetaminophen < 5.0 ug/mL (10-30); Alcohol Level < 10 mg/dL (0-10)
[2020-11-02 19:00] VITALS: BP 152/95; PULSE 92; RESP 18; TEMP 37.2; O2SAT 97
[2020-11-02 19:46] VITALS: BP 148/88; PULSE 92; RESP 18; TEMP 37.1
[2020-11-02 20:55] VITALS: BP 156/114; PULSE 101; RESP 20; TEMP 36.9; O2SAT 94
[2020-11-02] MEDS: trazodone 50 mg Tablet PO (23:20)
[2020-11-02] MEDS: quetiapine XR (24HR) 50 mg Tablet 200 MG PO (23:20)
[2020-11-02] MEDS: OLANZapine 5 mg TABLET PO (23:21)
[2020-11-02] MEDS: hyDROXYzine 25 mg Capsule 100 MG PO (23:21)
[2020-11-03 06:00] VITALS: BP 133/88; PULSE 89; RESP 18; TEMP 36.8; O2SAT 96
[2020-11-03] MEDS: propranolol 20 mg Tablet 10 MG PO (08:49)
[2020-11-03] MEDS: sertraline 100 mg Tablet PO (08:49)
[2020-11-03] MEDS: gabapentin 300 mg Capsule PO ×3 (08:49→21:08)
[2020-11-03] MEDS: lisinopril 10 mg Tablet PO (08:49)
[2020-11-03] MEDS: hydroCHLOROthiazide 25 mg Tablet 12.5 MG PO (08:49)
[2020-11-03] MEDS: lamoTRIgine 25 mg Tablet PO (08:49)
[2020-11-03 13:20] VITALS: BP 113/70; PULSE 84; RESP 17; TEMP 36.8; O2SAT 93
[2020-11-03] MEDS: nicotine 2 mg Gum BUCCAL ×3 (13:22→21:08)
[2020-11-03] MEDS: hyDROXYzine 25 mg Capsule 100 MG PO ×2 (16:04→21:08)
--- NOTE | 2020-11-03 16:57 | P.PN_ITS ---
Subjective NPU Subjective: Interval history: Nomi presents today reporting that he still feels the way he was feeling yesterday. He continues to report being fearful that he will return to bad coping mechanisms and make some dangerous choices. He reports that he has had difficulties with addiction throughout his life. He reports that he had been sober until months prior to his previous admission but has started drinking heavily. He reports that he drinks at the bar. Nurses having a history of cocaine use/addiction as well. He reports that he was able to do this in the past because he actually had a good job. He worked with the social work team on possible referrals. Mental Status Exam MSE Comments: This is a morbidly obese white male in hospital scrubs with limited grooming and adequate eye contact. No abnormal movements except for mild psychomotor retardation. Cooperative with exam in mild distress. Speech was slightly decreased rate and volume. Mood described as depressed, affect less tearful. Thought process organized. The patient endorses suicidal and homicidal ideation but reports being safe here, there were no delusions reported or noted, he did endorse continued auditory but denied visual hallucinations. Attention and concentration were intact and memory appeared reliable but none were formally tested. He is alert and oriented x3. Insight and judgment appe ars limited and impulse control appears impaired. Vitals/I&O/Wt Last Vital Signs Temp 97.9 F 11/03/20 22:00 Pulse 82 11/03/20 22:00 Resp 18 11/03/20 22:00 BP 120/76 11/03/20 22:00 Pulse Ox 98 11/03/20 22:00 Weight last 48 hrs Weight 181.437 kg Data NPU : 11/02/20 18:20 11/02/20 18:20 A&P Additional A&P Information (1) Suicidal ideation: (2) Schizoaffective disorder, depressive type: (3) Anxiety disorder, unspecified: (4) Homicidal ideation: (5) Autistic spectrum disorder: This is a 30-year-old white male just discharged earlier today who presents back with reports of suicidal homicidal ideation against the backdrop of not feeling capable of returning to his previous living arrangement. He has limited social skills and limited coping mechanisms and made threats to 2 specific people in the home reporting a plan for murder suicide. Given the current level of emotional dysregulation sending him home could prove dangerous. 1. Continue current medication. 2. Continue every 15 minute checks for safety. 3. Encourage individual, group and milieu therapies. 4. Encourage sober living treatment after discharge at the highest level of car e to which he is willing to commit. Involuntary Hold Information 96 Hour Hold: 96 Hour Involuntary Admission: No Attestations NPU Medical Necessity Statement*: Inpatient hospitalization is medically necessary and the clinically appropriate intervention at this time. We will monitor medications and make changes as indicated. Likely length of stay 3 to 5 days. Coding Level of Care Code Acute Bottle Washer Machine for Severion Rutherford
[2020-11-03] MEDS: quetiapine XR (24HR) 50 mg Tablet 200 MG PO (21:07)
[2020-11-03] MEDS: OLANZapine 5 mg TABLET PO (21:08)
[2020-11-03] MEDS: trazodone 50 mg Tablet PO (21:08)
[2020-11-03 22:00] VITALS: BP 120/76; PULSE 82; RESP 18; TEMP 36.6; O2SAT 98
--- NOTE | 2020-11-03 23:35 | PC.NURSE ---
prn 2107 Administered 50mg Trazodone and 2mg Nicotine gum for sleep aid and cravings. Will continue to monitor pt.
[2020-11-04 06:00] VITALS: BP 135/90; PULSE 103; RESP 18; TEMP 36.7; O2SAT 96
[2020-11-04] MEDS: lisinopril 10 mg Tablet PO (09:42)
[2020-11-04] MEDS: hyDROXYzine 25 mg Capsule 100 MG PO ×3 (09:42→20:50)
[2020-11-04] MEDS: gabapentin 300 mg Capsule PO ×3 (09:42→20:52)
[2020-11-04] MEDS: hydroCHLOROthiazide 25 mg Tablet 12.5 MG PO (09:43)
[2020-11-04] MEDS: sertraline 100 mg Tablet PO (09:43)
[2020-11-04] MEDS: propranolol 20 mg Tablet 10 MG PO ×2 (09:44→20:51)
[2020-11-04] MEDS: lamoTRIgine 25 mg Tablet PO (09:44)
[2020-11-04] MEDS: nicotine 2 mg Gum BUCCAL ×3 (11:07→20:57)
[2020-11-04] MEDS: OLANZapine 5 mg ODT PO (13:25)
[2020-11-04 14:00] VITALS: BP 135/90; PULSE 103; RESP 18; TEMP 36.7; O2SAT 96
[2020-11-04] MEDS: acetaminophen 325 mg Tablet 650 MG PO (14:58)
--- NOTE | 2020-11-04 16:30 | P.PN_ITS ---
Subjective NPU Subjective: Interval history: Patient presents today reporting that he is doing okay. He reports he is tolerating the increase in Zoloft without concerns. We discussed the fact that the treatment team is working on possible discharge delusions but that this would not impact this weekend at the earliest likelihood of discharge will be Saturday but currently there are no clear options available. He continues to report limited effectiveness of the medication regimen overall. Mental Status Exam MSE Comments: This is a morbidly obese white male in hospital scrubs with adequate grooming and adequate eye contact. No abnormal movements except for mild psychomotor retardation. Cooperative with exam in mild distress. Speech was slightly decreased rate and volume. Mood described as depressed, affect congruent. Thought process organized. The patient endorses suicidal and homicidal ideation but reports being safe here, there were no delusions reported or noted, he did endorse continued auditory but denied visual hallucinations. Attention and concentration were intact and memory appeared reliable but none were formally tested. He is alert and oriented x3. Insight and judgment appears limited and impulse control appears impaired. Vitals/I&O/Wt Last Vital Signs Temp 98.1 F 11/04/20 14:00 Pulse 103 H 11/04/20 14:00 Resp 18 11/04/20 14:00 BP 135/90 11/04/20 14:00 Pulse Ox 96 11/04/20 14:00 Data NPU : 11/02/20 18:20 11/02/20 18:20 A&P Additional A&P Information (1) Suicidal ideation: (2) Schizoaffective disorder, depressive type: (3) Anxiety disorder, unspecified: (4) Homicidal ideation: (5) Autistic spectrum disorder: This is a 30-year-old white male just discharged earlier today who presents back with reports of suicidal homicidal ideation against the backdrop of not feeling capable of returning to his previous living arrangement. He has limited social skills and limited coping mechanisms and made threats to 2 specific people in the home reporting a plan for murder suicide. Given the current level of emotional dysregulation sending him home could prove dangerous. 1. Continue current medication. 2. Continue every 15 minute checks for safety. 3. Encourage individual, group and milieu therapies. 4. Encourage sober living treatment after discharge at the highest level of care to which he is willing to commit. Involuntary Hold Information 96 Hour Hold: 96 Hour Involuntary Admission: No Attestations NPU Medical Necessity Statement*: Inpatient hospitalization is medically necessary and the clinically appropriate intervention at this time. We will monitor medications and make changes as indicated. Likely length of stay 3 to 5 days. Coding Level of Care Code Acute Principal Secretary for Severino Rutherford
[2020-11-04 20:17] VITALS: BP 108/68; PULSE 82; RESP 20; TEMP 36.7; O2SAT 94
[2020-11-04] MEDS: cyclobenzaprine 10 mg Tablet PO (20:51)
[2020-11-04] MEDS: trazodone 50 mg Tablet PO (20:52)
[2020-11-04] MEDS: quetiapine XR (24HR) 50 mg Tablet 200 MG PO (20:52)
[2020-11-04] MEDS: OLANZapine 5 mg TABLET PO (20:52)
--- NOTE | 2020-11-05 04:08 | PC.NURSE ---
PRN 2052 Administered 50mg Trazodone for a sleeping aid. Will continue to monitor pt.
[2020-11-05 05:55] VITALS: BP 122/78; PULSE 74; RESP 18; TEMP 36.7; O2SAT 94
[2020-11-05] MEDS: hyDROXYzine 25 mg Capsule 100 MG PO ×3 (09:06→20:43)
[2020-11-05] MEDS: sertraline 100 mg Tablet PO (09:07)
[2020-11-05] MEDS: lamoTRIgine 25 mg Tablet PO (09:07)
[2020-11-05] MEDS: gabapentin 300 mg Capsule PO ×3 (09:07→20:44)
[2020-11-05] MEDS: propranolol 20 mg Tablet 10 MG PO ×3 (09:08→20:44)
[2020-11-05] MEDS: hydroCHLOROthiazide 25 mg Tablet 12.5 MG PO (09:08)
[2020-11-05] MEDS: lisinopril 10 mg Tablet PO (09:09)
--- NOTE | 2020-11-05 09:52 | P.PN_ITS ---
Subjective NPU Subjective: Interval history: Patient presents today endorsing that he is maybe doing a tiny bit better. He reports he continues to speak with his father and that their relationship is still fine and without issues or drama. He reports that he is hopeful that his work with the treatment team to find an alternative to go home and successful because he still feels returning there would be a dangerous situation. He denies any issues with the medication or problems with the increase in the Zoloft x2 days now. Mental Status Exam MSE Comments: This is a morbidly obese white male in hospital scrubs with adequate grooming and adequate eye contact. No abnormal movements except for mi ld psychomotor retardation. Cooperative with exam in no acute distress. Speech was slightly decreased rate and volume. Mood described as maybe slightly better, affect congruent. Thought process organized. The patient endorses suicidal and homicidal ideation but reports being safe here, there were no delusions reported or noted, he did endorse continued auditory but denied visual hallucinations. Attention and concentration were intact and memory appeared reliable but none were formally tested. He is alert and oriented x3. Insight and judgment appears limited and impulse control appears impaired. Vitals/I&O/Wt Last Vital Signs Temp 98.1 F 11/05/20 05:55 Pulse 74 11/05/20 05:55 Resp 18 11/05/20 05:55 BP 122/78 11/05/20 05:55 Pulse Ox 94 11/05/20 05:55 Data NPU : 11/02/20 18:20 11/02/20 18:20 A&P Additional A&P Information (1) Suicidal ideation: (2) Schizoaffective disorder, depressive type: (3) Anxiety disorder, unspecified: (4) Homicidal ideation: (5) Autistic spectrum disorder: This is a 30-year-old white male just discharged earlier today who presents back with reports of suicidal homicidal ideation against the backdrop of not feeling capable of returning to his previous living arrangement. He has limited social skills and limited coping mechanisms and made threats to 2 specific people in the home reporting a plan for murder suicide. Given the current level of emotional dysregulation sending him home could prove dangerous. 1. Continue current medication. 2. Continue every 15 minute checks for safety. 3. Encourage individual, group and milieu therapies. 4. Encourage sober living treatment after discharge at the highest level of care to which he is willing to commit. Involuntary Hold Information 96 Hour Hold: 96 Hour Involuntary Admission: No Attestations NPU Medical Necessity Statement*: Inpatient hospitalization is medically necessary and the clinically appropriate intervention at this time. We will monitor medications and make changes as indicated. Likely length of stay 2-4 days. Coding Level of Care Code Acute Channel Marketing Manager for Severino Rutherford
[2020-11-05 14:00] VITALS: BP 124/79; PULSE 79; RESP 17; TEMP 36.9; O2SAT 95
[2020-11-05] MEDS: nicotine 2 mg Gum BUCCAL ×3 (14:17→20:44)
[2020-11-05] MEDS: quetiapine XR (24HR) 50 mg Tablet 200 MG PO (20:43)
[2020-11-05] MEDS: OLANZapine 5 mg TABLET PO (20:43)
[2020-11-05] MEDS: trazodone 50 mg Tablet PO (20:43)
[2020-11-05] MEDS: cyclobenzaprine 10 mg Tablet PO (20:54)
[2020-11-05] MEDS: acetaminophen 325 mg Tablet 650 MG PO (20:54)
[2020-11-05 22:00] VITALS: BP 141/81; PULSE 94; RESP 18; TEMP 36.7; O2SAT 99
[2020-11-06 05:14] VITALS: BMI 50.0
[2020-11-06 06:00] VITALS: BP 139/82; PULSE 79; RESP 18; TEMP 36.7; O2SAT 99
--- NOTE | 2020-11-06 07:54 | PM.NPN ---
Subjective NPU Subjective: Interval history: Patient presents today basically unchanged reporting that he is doing okay as he awaits possible placement. He continues to endorse that he is doing fine and interaction with his dad but is the cousin and niece that he is having these thoughts about. When asked why he is having thoughts about them he is reporting how they are living there and not making any contributions in his father and stepmother having worked so hard to take care of everyone. When I asked how he deals with the fact that he is not contributing he reported that he has a serious mental illness so he cannot help it. He reports that they are fully capable. Mental Status Exam MSE Comments: This is a morbidly obese white male in hospital scrubs with adequate grooming and adequate eye contact. No abnormal movements except for mild psychomotor retardation. Cooperative with exam in no acute distress. Speech was slightly decreased rate and volume. Mood described as not great but not horrible, affect congruent. Thought process organized. The patient endorses suicidal and homicidal ideation but reports being safe here, there were no delusions reported or noted, he did endorse continued auditory but denied visual hallucinations. Attention and concentration were intact and memory appeared reliable but none were formally tested. He is alert and oriented x3. Insight and judgment appears limited and impulse control appears impaired. Vitals/I&O/Wt Last Vital Signs Temp 98.0 F 11/06/20 06:00 Pulse 79 11/06/20 06:00 Resp 18 11/06/20 06:00 BP 139/82 11/06/20 06:00 Pulse Ox 99 11/06/20 06:00 Weight last 48 hrs Weight 181.437 kg Data NPU : 11/02/20 18:20 11/02/20 18:20 A&P Additional A&P Information (1) Suicidal ideation: (2) Schizoaffective disorder, depressive type: (3) Anxiety disorder, unspecified: (4) Homicidal ideation: (5) Autistic spectrum disorder: This is a 30-year-old white male just discharged earlier today who presents back with reports of suicidal homicidal ideation against the backdrop of not feeling capable of returning to his previous living arrangement. He has limited social skills and limited coping mechanisms and made threats to 2 specific people in the home reporting a plan for murder suicide. Given the current level of emotional dysregulation sending him home could prove dangerous. 1. Continue current medication. 2. Continue every 15 minute checks for safety. 3. Encourage individual, group and milieu therapies. 4. Encourage sober living treatment after discharge at the highest level of care to which he is willing to commit. Involuntary Hold Information 96 Hour Hold: 96 Hour Involuntary Admission: No Attestations NPU Medical Necessity Statement*: Inpatient hospitalization is medically necessary and the clinically appropriate intervention at this time. We will monitor medications and make changes as indicated. Likely length of stay 2-4 days. Coding Level of Care Code Acute Cost Engineer for Severino Rutherford
[2020-11-06] MEDS: lamoTRIgine 25 mg Tablet PO (09:08)
[2020-11-06] MEDS: gabapentin 300 mg Capsule PO ×3 (09:09→21:23)
[2020-11-06] MEDS: hydroCHLOROthiazide 25 mg Tablet 12.5 MG PO (09:09)
[2020-11-06] MEDS: lisinopril 10 mg Tablet PO (09:09)
[2020-11-06] MEDS: propranolol 20 mg Tablet 10 MG PO ×3 (09:09→21:23)
[2020-11-06] MEDS: sertraline 100 mg Tablet PO (09:10)
[2020-11-06] MEDS: hyDROXYzine 25 mg Capsule 100 MG PO ×3 (09:10→21:23)
[2020-11-06] MEDS: nicotine 2 mg Gum BUCCAL ×2 (09:22→14:47)
[2020-11-06 12:54] VITALS: BP 118/88; PULSE 105; RESP 18; TEMP 37.1; O2SAT 95
[2020-11-06] MEDS: acetaminophen 325 mg Tablet 650 MG PO (14:47)
[2020-11-06 19:18] LABS: Lamotrigine (Lamictal) Level <0.5 mcg/mL (4.0-18.0)
[2020-11-06 21:02] VITALS: BP 118/88; PULSE 96; RESP 18; TEMP 37.1; O2SAT 95
[2020-11-06] MEDS: trazodone 50 mg Tablet PO (21:22)
[2020-11-06] MEDS: quetiapine 100 mg Tablet 200 MG PO (21:22)
[2020-11-06] MEDS: OLANZapine 5 mg TABLET PO (21:23)
--- NOTE | 2020-11-06 21:25 | PC.NURSE ---
pt requested sleep aide, trazodone 50mg po given.
--- NOTE | 2020-11-07 00:26 | PC.NURSE ---
pt resting quietly at this time with both eyes closed.
[2020-11-07] MEDS: acetaminophen 325 mg Tablet 650 MG PO (05:58)
[2020-11-07 06:00] VITALS: BP 130/90; PULSE 77; RESP 17; TEMP 37.2; O2SAT 96
[2020-11-07] MEDS: hyDROXYzine 25 mg Capsule 100 MG PO ×3 (08:34→19:25)
[2020-11-07] MEDS: lamoTRIgine 25 mg Tablet PO (08:34)
[2020-11-07] MEDS: hydroCHLOROthiazide 25 mg Tablet 12.5 MG PO (08:35)
[2020-11-07] MEDS: sertraline 100 mg Tablet PO (08:35)
[2020-11-07] MEDS: lisinopril 10 mg Tablet PO (08:35)
[2020-11-07] MEDS: propranolol 20 mg Tablet 10 MG PO ×3 (08:35→19:25)
[2020-11-07] MEDS: gabapentin 300 mg Capsule PO ×3 (08:36→19:26)
[2020-11-07] MEDS: nicotine 2 mg Gum BUCCAL ×2 (11:05→19:26)
--- NOTE | 2020-11-07 12:36 | PM.NPN ---
Subjective NPU Subjective: Interval history: Nomi presents today optimistic about some of the possible options for discharge. Treatment team reached out to dad to try to find out if there are any family options that exist. He was in he is having some pain issues and we will restart his naproxen. He endorses slow improvement but inability to imagine himself functioning safely at home still. Mental Status Exam MSE Comments: This is a morbidly obese white male in hospital scrubs with adequate grooming and adequate eye contact. No abnormal movements except for mild psychomotor retardation. Cooperative with exam in no acute distress. Speech was slightly decreased rate and volume. Mood described as okay, affect congruent. Thought process organized. The patient endorses suicidal and homicidal ideation but reports being safe here, there were no delusions reported or noted, he did endorse continued auditory but denied visual hallucinations. Attention and concentration were intact and memory appeared reliable but none were formally tested. He is alert and oriented x3. Insight and judgment appears limited and impulse control appears impaired. Vitals/I&O/Wt Last Vital Signs Temp 99.0 F 11/07/20 06:00 Pulse 77 11/07/20 06:00 Resp 17 11/07/20 06:00 BP 130/90 11/07/20 06:00 Pulse Ox 96 11/07/20 06:00 Weight last 48 hrs Weight 181.437 kg Data NPU : 11/02/20 18:20 11/02/20 18:20 A&P Additional A&P Information (1) Suicidal ideation: (2) Schizoaffective disorder, depressive type: (3) Anxiety disorder, unspecified: (4) Homicidal ideation: (5) Autistic spectrum disorder: This is a 30-year-old white male just discharged earlier today who presents back with reports of suicidal homicidal ideation against the backdrop of not feeling capable of returning to his previous living arrangement. He has limited social skills and limited coping mechanisms and made threats to 2 specific people in the home reporting a plan for murder suicide. Given the current level of emotional dysregulation sending him home could prove dangerous. 1. Continue current medication. restart naproxen. 2. Continue every 15 minute checks for safety. 3. Encourage individual, group and milieu therapies. 4. Encourage sober living treatment after discharge at the highest level of care to which he is willing to commit. Involuntary Hold Information 96 Hour Hold: 96 Hour Involuntary Admission: No Attestations NPU Medical Necessity Statement*: Inpatient hospitalization is medically necessary and the clinically appropriate intervention at this time. We will monitor medications and make changes as indicated. Likely length of stay 1-3 days. Coding Level of Care Code Acute Geographic Information Systems Analyst for Severino Rutherford
[2020-11-07 14:00] VITALS: BP 123/74; PULSE 68; RESP 16; TEMP 36.8; O2SAT 98
[2020-11-07] MEDS: quetiapine XR (24HR) 50 mg Tablet 200 MG PO (19:25)
[2020-11-07] MEDS: trazodone 50 mg Tablet PO (19:25)
[2020-11-07] MEDS: OLANZapine 5 mg TABLET PO (19:26)
[2020-11-07] MEDS: naproxen 500 mg Tablet PO (19:26)
[2020-11-07 19:54] VITALS: BP 116/77; PULSE 97; RESP 13; TEMP 36.8; O2SAT 99
[2020-11-08 06:00] VITALS: BP 140/89; PULSE 78; RESP 18; TEMP 36.6; O2SAT 95
[2020-11-08] MEDS: hyDROXYzine 25 mg Capsule 100 MG PO (08:57)
[2020-11-08] MEDS: sertraline 100 mg Tablet PO (08:57)
[2020-11-08] MEDS: propranolol 20 mg Tablet 10 MG PO (08:58)
[2020-11-08] MEDS: lisinopril 10 mg Tablet PO (08:58)
[2020-11-08] MEDS: hydroCHLOROthiazide 25 mg Tablet 12.5 MG PO (08:58)
[2020-11-08] MEDS: gabapentin 300 mg Capsule PO (08:58)
[2020-11-08] MEDS: lamoTRIgine 25 mg Tablet PO (08:58)
[2020-11-08] MEDS: naproxen 500 mg Tablet PO (08:58)
[2020-11-08] MEDS: nicotine 2 mg Gum BUCCAL (11:39)
--- NOTE | 2020-11-08 12:20 | NPU.GN ---
[facility] Topic: Coping Skills General Mood of Group: Nomi was in group on time with out being asked, he was dressed appropriate and interacted well in group. In group we did coping skills using their senses and discussed other coping skills. Nomi opened up well about his recent addiction to drinking and opened up about his past addiction to cocain. He seems to be improving daily and this is seen in group the more he speaks amongst the group.
--- NOTE | 2020-11-08 12:25 | P.DS_ITS ---
Diagnoses at Discharge Discharge Diagnosis (1) Suicidal ideation: Status: Resolved (2) Schizoaffective disorder, depressive type: Status: Suspected (3) Anxiety disorder, unspecified: Status: Acute (4) Homicidal ideation: Status: Resolved (5) Autistic spectrum disorder: Status: Acute Reason for Visit Reason for Visit: SI Brief History: History of Present Illness Nomi Das is a 30 year old male who presented to the emergency department with the following report: Chief Complaint: Psychiatric Symptoms Stated Complaint: SI Time Seen by Provider: 11/02/20 17:08 History of Present Illness: HPI Narrative: Patient is a 30-year-old male comes to the ED with SI and HI. Patient was just discharged from the stress unit here at [facility] and immediately came here to the ED for evaluation for continuing thoughts of SI and HI. Patient says he has a plan of using a knife to hurt some of the people that live at his house and then said he will slit his wrist. Patient says he is worried that he is going to act on his thoughts if he goes home. Associated symptoms: Reports homicidal ideation and suicidal ideation; Deny auditory hallucinations or visual hallucinations. He was discharged from the neuropsychiatric unit moments ago and presented to the emergency department endorsing suicidal and homicidal intentions. Psychiatric consult was requested for specialist evaluation of these issues. Nomi presents reporting that he cannot go home. He reports that he goes home there were 2 specific people he would kill and that he would kill himself. We had a lengthy discussion about his unwillingness to accept a custodial/bridge housing therapeutic option as well which she argued that he was not stable enough to be in that kind of environment. After continued discussion about his circumstance it was clear that he would not consider the clear alternatives to his current positioning. Per his 11/02/2020 [facility] inpatient discharge summary: Discharge Diagnosis (1) Major depressive disorder, recurrent severe without psychotic features: Status: Deleted (2) Anxiety disorder, unspecified: Status: Acute (3) Schizoaffective disorder, depressive type: Status: Suspected Reason for Visit Reason for Visit: SI/Depression Brief History: History of Present Illness Nomi Das is a 30 year old male with a history of depression and suicidal ideation arriving from [facility]. The ER note states: Patient was released from a psych facility approximately 10 days ago. States that he did not get his medications filled at discharge because his father wouldn't pay for them. he states that he has had thoughts of overdosing on flexeril. Other records state: EtOH negative, Acetaminophen negative, negative: amphetamines, barbiturates, benzodiazepines, cocaine, marijuana, opiates. The patient reports feeling ups and downs more frequently in the past two months. He denies suicidal ideation today but admits previous suicidal ideation related to this admission. He no longer drinks but reports that he used to drink 1 pint of whiskey per day up to three months ago when he quit because he could no longer pay for it. He denies using or a history of using any illicit drugs. He says that his primary stressors are living with his father, father's girlfriend, girlfriend's family (4 people) and financial problems. The patient has a history of taking the medications listed below but has not been adherent due to a lack of access. The patient was diagnosed with schizoaffective disorder at the age of 17 or 18. The patient has been admitted for psychiatric reasons 6 times: 2 times for suicide attempts as a minor, 5 years ago for a suicide attempt, and 4 times since August 2020 for suicidal ideation and depression. 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 The patient states he hopes to be placed in an RCF because he feels it will be more structured than his current living situation and that he needs that structure in order to stay well. Psychiatric history: as above Substance use history: as above Family history: The patient denies any history of treated or untreated mental conditions in his family as well as denies suicide attempts or completion in the family. 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 <GRAYSON Pickering STDNT - Last Filed: 10/26/20 11:29> Pt seen with student. Agree with above. <Arthur Swenson MD - Last Filed: 10/27/20 09:50> Hospital Course He slowly acclimated to the individual, group and milieu therapies provided. Zyprexa, Zoloft and Neurontin were initiated and titrated to effect. He had slow but limited improvement. The improvement appeared to be put in jeopardy every time discharge was considered. We continued to discuss the fact that everyone was in agreement that his home situation was not preferable to him and that he has a plan for some kind of a halfway setting but that we do not have the ability to hold him indefinitely for housing considerations. The day prior to acknowledged discharge date he would say he believes he be okay and then on the day of discharge all of that would crumble. We discussed the fact that he would just have to manage for the next month or 2 awaiting Medicaid and some sort of placement and he reported that he would give that a try. During the hospitalization, patient had routine laboratory studies which were within normal limits except for few outliers. Additionally there was a general medical evaluation which was also within normal limits and revealed no new acute processes. Discharge Summary: At the time of discharge, he was absent psychosis. Mood and anxiety were well managed. Patient endorsed a plan to avoid all drugs of abuse and follow-up with the aftercare recommendations of the treatment team. Patient was evaluated and deemed to be absent credible lethality, and had achieved the maximum benefit from an inpatient hospitalization, so was discharged. Hospital Course Hospital Course He slowly acclimated to the individual, group and mood therapies provided. This is essentially a continuation of his previous hospitalization that ended on for him to walk to the emergency department. Clearly his cognitive and psychosocial limitations combined with his situation at home may possible for him to conceive of a safe reentry at home. Given his autistic tendencies no concerns exist about what his behavior might be. He worked with the treatment team to find an alternative situation and we were able to find new beginnings was offered him a safe option for discharge. There were no changes made in his medications after he returned. He demonstrated mild improvement. He was able to contract for safety prior to discharge. During the hospitalization, patient had routine laboratory studies which were within normal limits except for few outliers. Additionally there was a general medical evaluation which was also within normal limits and revealed no new acute processes. Discharge Summary: At the time of discharge, he denied psychosis or lethality. Mood and anxiety were well managed. Patient endorsed a plan to avoid all drugs of abuse and follow-up with the aftercare recommendations of the treatment team. Patient was evaluated and deemed to be absent credible lethality, and had achieved the maximum benefit from an inpatient hospitalization, so was discharged. Involuntary Hold Information 96 Hour Hold: 96 Hour Involuntary Admission: No Mental Status Exam MSE Comments: This is a morbidly obese white male in hospital scrubs with adequate grooming and adequate eye contact. No abnormal movements except for mild psychomotor retardation. Cooperative with exam in no acute distress. Speech was slightly decreased rate and volume. Mood described as a little better, affect congruent. Thought process organized. The patient denied suicidal or homicidal ideation, there were no delusions reported or noted, he d reported his auditory hallucinations were decreasing and denied visual hallucinations. Attention and concentration were intact and memory appeared reliable but none were formally tested. He is alert and oriented x3. Insight and judgment appears limited and impulse control appears limited. Discharge Data Vitals: Last Vital Signs Temp 97.9 F 11/08/20 06:00 Pulse 78 11/08/20 06:00 Resp 18 11/08/20 06:00 BP 140/89 11/08/20 06:00 Pulse Ox 95 11/08/20 06:00 Discharge Plan Discharge Patient Disposition: Home Condition: Stable Prescriptions: New propranolol 20 mg Tablet 10 mg PO TID 30 Days Qty: 45 RF: 1 Continued cyclobenzaprine 10 mg Tablet 10 mg PO TID PRN (Reason: Back Pain) 30 Days Qty: 90 RF: 1 hydroxyzine pamoate 100 mg Capsule 100 mg PO TID 30 Days Qty: 90 RF: 1 Lamictal 25 mg Tablet 25 mg PO DAILY 30 Days Qty: 30 RF: 1 lisinopril-hydrochlorothiazide 10-12.5 mg Tablet 1 tab PO DAILY 30 Days Qty: 30 RF: 1 Naprosyn 500 mg tablet 500 mg PO BID 30 Days Qty: 60 RF: 1 Seroquel XR 200 mg Tablet Extended Release 24 Hr 200 mg PO BEDTIME 30 Days Qty: 30 RF: 1 trazodone 50 mg Tablet 50 mg PO BEDTIME PRN (Reason: Sleep) 30 Days Qty: 30 RF: 1 sertraline 100 mg tablet 100 mg PO DAILY 30 Days Qty: 30 RF: 1 gabapentin 300 mg Capsule 300 mg PO TID 30 Days Qty: 90 RF: 1 olanzapine [Zyprexa] 5 mg tablet 5 mg PO BEDTIME 30 Days Qty: 30 RF: 1 Discontinued propranolol 10 mg Tablet 10 mg PO DAILY RF: 0 Discharge Orders: Discharge Order (Routine); Ordered 11/08/20 Ordered By: Lennox Valentin Discharge Diet: Regular Discharge Activity: Resume usual activity Patient Instructions: Propranolol (By mouth), Opioid Safety Discharge Attestations NPU Time Spent in Discharge Care*: less than 30 min Specific Discharge Activities: Specific discharge activities: educating patient, discussing with case operator/social workers/dc planners, documenting/other paperwork and evaluating patient/reviewing data Coding Level of Care Code Acute [facility] DC note Diagnoses Suicidal ideation R45.851 Schizoaffective disorder, depressive type F25.1 Anxiety disorder, unspecified F41.9 Homicidal ideation R45.850 Autistic spectrum disorder F84.0
[2020-11-08 12:31] VITALS: BP 140/89; PULSE 78; RESP 18; TEMP 36.6; O2SAT 95
== END 2020-11-08 13:18 | disposition home or self-care (01) | DRG 885 ==
LOC: ER 19:10 → NP 19:27
PROVIDERS: Physician Assistant; Admitting Provider Psychiatry & Neurology Psychiatry; Emergency Provider Physician Assistant; Visit Provider Psychiatry & Neurology Psychiatry
DX: F25.1 Schizoaffective disorder, depressive type (principal); R45.851 Suicidal ideations; R45.850 Homicidal ideations; F41.9 Anxiety disorder, unspecified; F84.0 Autistic disorder
CPT/HCPCS: 36415; 80053; 80175; 80306; 80307; 85025; 97165; 99285; G0378

== ENCOUNTER 2021-05-24 12:08 | Inpatient (IN) | payer BC, MEDICAID, SELFPAY ==
[2021-05-24 12:36] VITALS: BMI 52.1
[2021-05-24 12:53] VITALS: BP 178/99; PULSE 107; RESP 22; TEMP 36.8; O2SAT 97
[2021-05-24] MEDS: lisinopril 20 mg Tablet PO (13:20)
[2021-05-24 13:59] VITALS: BP 178/99; PULSE 107; RESP 22; TEMP 36.8; O2SAT 97
[2021-05-24] MEDS: propranolol 20 mg Tablet PO ×2 (14:51→20:49)
[2021-05-24] MEDS: BuSPIRONE 10 mg Tablet PO ×2 (14:51→20:49)
[2021-05-24] MEDS: gabapentin 300 mg Capsule 600 MG PO ×2 (14:52→20:48)
[2021-05-24] MEDS: nicotine 2 mg Gum BUCCAL ×2 (14:56→17:49)
[2021-05-24] MEDS: OXcarbazepine 300 mg Tablet PO (17:33)
[2021-05-24] MEDS: quetiapine 300 mg Tablet PO (20:49)
[2021-05-24] MEDS: quetiapine 100 mg Tablet PO (20:49)
[2021-05-24 20:58] VITALS: BP 160/93; PULSE 93; RESP 18; TEMP 36.7; O2SAT 93
[2021-05-25] MEDS: naproxen 500 mg Tablet PO ×2 (05:21→17:42)
[2021-05-25 06:00] VITALS: BP 145/91; PULSE 79; RESP 19; TEMP 36.5; O2SAT 96
[2021-05-25] MEDS: BuSPIRONE 10 mg Tablet PO ×3 (08:44→20:18)
[2021-05-25] MEDS: gabapentin 300 mg Capsule 600 MG PO ×3 (08:44→20:18)
[2021-05-25] MEDS: propranolol 20 mg Tablet PO ×3 (08:44→20:18)
[2021-05-25] MEDS: lisinopril 20 mg Tablet PO (08:44)
[2021-05-25] MEDS: sertraline 50 mg Tablet PO (08:44)
[2021-05-25] MEDS: OXcarbazepine 300 mg Tablet PO ×2 (08:44→17:43)
[2021-05-25] MEDS: nicotine 2 mg Gum BUCCAL ×2 (08:45→12:19)
[2021-05-25] MEDS: venlafaxine ER (24HR) 150 mg Capsule 300 MG PO (08:45)
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
[2021-05-25] MEDS: psyllium powder Pkt 1 PACKET PO (13:36)
[2021-05-25 14:00] VITALS: BP 156/95; PULSE 82; RESP 20; TEMP 36.6; O2SAT 96
[2021-05-25] MEDS: nicotine 4 mg lozenge MUCOUS MEM ×3 (16:20→20:23)
--- NOTE | 2021-05-25 16:56 | PC.SOCIAL ---
Patient attended and participated in group. He made meaningful contributions to the group discussion.
[2021-05-25] MEDS: lithium carbonate 300 mg Capsule PO (17:43)
[2021-05-25] MEDS: quetiapine 100 mg Tablet PO (20:18)
[2021-05-25] MEDS: quetiapine 300 mg Tablet PO (20:18)
[2021-05-25 20:44] VITALS: BP 164/102; PULSE 80; RESP 18; TEMP 36.4; O2SAT 97
[2021-05-26 06:00] VITALS: BP 149/95; PULSE 74; RESP 16; TEMP 36.4; O2SAT 93
[2021-05-26] MEDS: psyllium powder Pkt 1 PACKET PO ×2 (06:23→16:06)
[2021-05-26] MEDS: nicotine 4 mg lozenge MUCOUS MEM ×4 (08:35→17:34)
[2021-05-26] MEDS: venlafaxine ER (24HR) 150 mg Capsule 300 MG PO (08:35)
[2021-05-26] MEDS: lithium carbonate 300 mg Capsule PO ×2 (08:36→17:34)
[2021-05-26] MEDS: OXcarbazepine 300 mg Tablet PO ×2 (08:36→17:34)
[2021-05-26] MEDS: gabapentin 300 mg Capsule 600 MG PO ×3 (08:36→20:59)
[2021-05-26] MEDS: BuSPIRONE 10 mg Tablet PO ×3 (08:36→20:59)
[2021-05-26] MEDS: lisinopril 20 mg Tablet PO (08:36)
[2021-05-26] MEDS: propranolol 20 mg Tablet PO ×3 (08:36→20:59)
[2021-05-26] MEDS: naproxen 500 mg Tablet PO (10:21)
--- NOTE | 2021-05-26 12:16 | P.NPUPN_ITS ---
Subjective NPU Subjective: The nurses reported that he was hurt and mentioned the multiple times that I said he was overweight when he asked for double portions. He said he did take that a little hard because he is sensitive but was not angry with me about it. He says the Metamucil does help him feel less hungry. He said they gave it to him at 9 PM last night instead of before dinner which she did not understand. I told him that I had intended to order it for 4 PM and will make sure that is the way it should be. He has not had any side effects from his lithium. We again talked about the treatment of anxiety adding it to his other medications. He continues to have episodic suicidal thoughts. Mental Status Exam MSE Comments: The patient is a morbidly obese white male in hospital scrubs with limited grooming and adequate eye contact.? No abnormal movements. Normal psychomotor activity.? Cooperative with exam in no distress.? Speech was of normal rate and elevated volume.? Mood described as depressed, affect mildly dysphoric.? Thought process organized.? The patient endorses suicidal and homicidal ideation, there were no delusions reported or noted, he denied auditory or visual hallucinations.? Attention and concentration were intact and memory appeared reliable but none were formally tested.? He is alert and oriented x3.? Insight and judgment appears limited and impulse control appears impaired. Cognition: Patient Appearance: Disheveled/Poor Hygiene Ability to Follow Directions: Good Patient Orientation (long list): Person, Place, Name, Age and Birthday Comprehension Ability: Understands Concepts Hallucination Type: None Delusion Description: Not Present Thought Process: Appropriate and Logical Affect: Affect Description: Sad Behavior: Patient Behavior: Appropriate and Cooperative Speech Pattern: Appropriate and Clear Vitals/I&O/Wt Last Vital Signs Temp 97.6 F 05/26/21 06:00 Pulse 74 05/26/21 06:00 Resp 16 05/26/21 06:00 BP 149/95 05/26/21 06:00 Pulse Ox 93 05/26/21 06:00 Weight last 48 hrs Weight 189.148 kg Weight 189.148 kg A&P Assessment and plan (1) Borderline personality disorder: Status: Acute (2) Schizoaffective disorder, depressive type: Status: Suspected (3) Anxiety disorder, unspecified: Status: Acute (4) Autistic spectrum disorder: Status: Acute Plan This is a 30-year old male who is been hospitalized about once per month with suicidal ideation since he moved in with his father last August. Plan: 1. Continue current medication. Add lithium 300 mg twice a day. We will increase to 3 times a day as tolerated. 2. Continue every 15 minute checks for safety. 3. Encourage individual, group and milieu therapies. 4. Encourage sober living treatment after discharge at the highest level of care to which he is willing to commit. 5. We will monitor for safety for himself in the community prior to discharge. Involuntary Hold Information 96 Hour Hold: 96 Hour Involuntary Admission: No Attestations NPU Medical Necessity Statement*: Inpatient hospitalization is medically necessary and the clinically appropriate intervention at this time. We will initiate medications and make changes as indicated. 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
[2021-05-26 14:00] VITALS: BP 155/88; PULSE 80; RESP 20; TEMP 36.9; O2SAT 96
--- NOTE | 2021-05-26 14:26 | PC.SOCIAL ---
Patient attended and participated in the beginning of the group.
[2021-05-26] MEDS: acetaminophen 325 mg Tablet 650 MG PO (15:06)
[2021-05-26] MEDS: quetiapine 300 mg Tablet PO (20:59)
[2021-05-26] MEDS: quetiapine 100 mg Tablet PO (20:59)
[2021-05-26 21:32] VITALS: BP 168/106; PULSE 81; RESP 18; O2SAT 96
[2021-05-27] MEDS: acetaminophen 325 mg Tablet 650 MG PO (05:44)
[2021-05-27 05:47] VITALS: BP 132/80; PULSE 71; RESP 17; O2SAT 95
[2021-05-27] MEDS: psyllium powder Pkt 1 PACKET PO (06:18)
[2021-05-27] MEDS: gabapentin 300 mg Capsule 600 MG PO ×3 (09:20→20:37)
[2021-05-27] MEDS: venlafaxine ER (24HR) 150 mg Capsule 300 MG PO (09:20)
[2021-05-27] MEDS: BuSPIRONE 10 mg Tablet PO ×3 (09:21→20:37)
[2021-05-27] MEDS: OXcarbazepine 300 mg Tablet PO ×2 (09:21→17:06)
[2021-05-27] MEDS: lisinopril 20 mg Tablet PO (09:21)
[2021-05-27] MEDS: propranolol 20 mg Tablet PO ×3 (09:21→20:37)
[2021-05-27] MEDS: lithium carbonate 300 mg Capsule PO ×3 (09:21→20:37)
[2021-05-27] MEDS: benzocaine 20% 7 gm 1 APPLIC MUCOUS MEM ×4 (09:31→19:16)
--- NOTE | 2021-05-27 12:25 | P.NPUPN_ITS ---
Subjective NPU Subjective: He says that he is doing well. He cannot really tell anything from the lithium twice a day that he took yesterday. He is a little more thirsty but no other side effects. He is willing to increase to 3 times a day and told that he might notice something from that tomorrow. He says that the Metamucil twice a day does help him feel more full. He has not had side effects from that. Mental Status Exam MSE Comments: The patient is a morbidly obese white male in hospital scrubs with limited grooming and adequate eye contact.? No abnormal movements. Normal psychomotor activity.? Cooperative with exam in no distress.? Speech was of normal rate and elevated volume.? Mood described as depressed, affect mildly dysphoric.? Thought process organized.? The patient endorses suicidal and homicidal ideation, there were no delusions reported or noted, he denied auditory or visual hallucinations.? Attention and concentration were intact and memory appeared reliable but none were formally tested.? He is alert and oriented x3.? Insight and judgment appears limited and impulse control appears impaired. Cognition: Patient Appearance: Appropriate Ability to Follow Directions: Good Patient Orientation (long list): Person, Place, Name, Age, Birthday, Month and Year Comprehension Ability: Understands Concepts Hallucination Type: None Delusion Description: Not Present Thought Process: Appropriate Affect: Affect Description: Appropriate Behavior: Patient Behavior: Appropriate and Cooperative Speech Pattern: Appropriate and Clear Vitals/I&O/Wt Last Vital Signs Temp 98.4 F 05/26/21 14:00 Pulse 71 05/27/21 05:47 Resp 17 05/27/21 05:47 BP 132/80 05/27/21 05:47 Pulse Ox 95 05/27/21 05:47 A&P Assessment and plan (1) Borderline personality disorder: Status: Acute (2) Schizoaffective disorder, depressive type: Status: Suspected (3) Anxiety disorder, unspecified: Status: Acute (4) Autistic spectrum disorder: Status: Acute Plan This is a 30-year old male who is been hospitalized about once per month with suicidal ideation since he moved in with his father last August. Plan: 1. Continue current medication. Add lithium 300 mg twice a day. We will increase to 3 times a day today. 2. Continue every 15 minute checks for safety. 3. Encourage individual, group and milieu therapies. 4. Encourage sober living treatment after discharge at the highest level of care to which he is willing to commit. 5. We will monitor for safety for himself in the community prior to discharge. Involuntary Hold Information 96 Hour Hold: 96 Hour Involuntary Admission: No Attestations NPU Medical Necessity Statement*: Inpatient hospitalization is medically necessary and the clinically appropriate intervention at this time. We will initiate medications and make changes as indicated. 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
[2021-05-27] MEDS: nicotine 4 mg lozenge MUCOUS MEM ×2 (12:26→14:35)
[2021-05-27 14:00] VITALS: BP 162/103; PULSE 68; RESP 18; TEMP 36.4; O2SAT 95
[2021-05-27 19:42] VITALS: BP 164/91; PULSE 83; RESP 20; TEMP 36.7; O2SAT 95
[2021-05-27] MEDS: quetiapine 300 mg Tablet PO (20:37)
[2021-05-27] MEDS: naproxen 500 mg Tablet PO (20:37)
[2021-05-27] MEDS: quetiapine 100 mg Tablet PO (20:37)
[2021-05-28 06:00] VITALS: BP 127/81; PULSE 86; RESP 18; TEMP 36.7; O2SAT 96
[2021-05-28] MEDS: psyllium powder Pkt 1 PACKET PO (06:08)
[2021-05-28 08:40] LABS: Basophils % 0.3 %; Eosinophils # 0.4 10^3/uL (0.0-0.8); Eosinophils % 5.1 %; Hematocrit 43.9 % (42.0-52.0); Lymphocytes # 1.4 10^3/uL (0.8-4.8); Lymphocytes % 15.9 %; Mean Corpuscular HGB Conc 34.2 g/dL (30.0-36.0); Mean Corpuscular Hemoglobin 29.7 pg (28.0-34.0); Mean Corpuscular Volume 86.9 fl (80-94); Monocytes # 0.6 10^3/uL (0.2-0.9); Monocytes % 6.9 %; Neutrophils # 6.12 10^3/uL (1.8-7.7); Neutrophils % 71.3 %; Nucleated Red Blood Cells % 0 %; Platelet Count 263 10^3/cmm (130-400); Red Blood Count 5.05 10^6/uL (4.1-5.3); Red Cell Distribution Width 13.4 % (12.1-15.1); White Blood Count 8.6 10^3/uL (4.0-10.0)
[2021-05-28] MEDS: BuSPIRONE 10 mg Tablet PO ×3 (08:41→20:48)
[2021-05-28] MEDS: lisinopril 20 mg Tablet PO (08:41)
[2021-05-28] MEDS: lithium carbonate 300 mg Capsule PO ×3 (08:41→20:48)
[2021-05-28] MEDS: propranolol 20 mg Tablet PO ×3 (08:41→20:48)
[2021-05-28] MEDS: OXcarbazepine 300 mg Tablet PO ×2 (08:41→20:48)
[2021-05-28] MEDS: venlafaxine ER (24HR) 150 mg Capsule 300 MG PO (08:41)
[2021-05-28] MEDS: gabapentin 300 mg Capsule 600 MG PO ×3 (08:41→20:48)
[2021-05-28] MEDS: benzocaine 20% 7 gm 1 APPLIC MUCOUS MEM ×5 (09:03→16:28)
[2021-05-28 14:00] VITALS: BP 156/95; PULSE 81; RESP 20; TEMP 36.6; O2SAT 97
--- NOTE | 2021-05-28 14:32 | P.NPUPN_ITS ---
Subjective NPU Subjective: He says that his anxiety is significantly improved the last few days. His depression is somewhat better but not dramatically. He is sleeping well. He is teeth still hurt but the Orajel is helping. His white count was normal. He has not had any side effects from the lithium. Today will be the second day on 3 times a day. He is sleeping well. He denies any suicidal ideation the last couple of days. Mental Status Exam MSE Comments: The patient is a morbidly obese white male in hospital scrubs with limited grooming and adequate eye contact.? No abnormal movements. Normal psychomotor activity.? Cooperative with exam in no distress.? Speech was of normal rate and elevated volume.? Mood described as depressed but better affect mildly dysphoric.? Thought process organized.? He denies suicidal or homicidal ideation. There were no delusions reported or noted, he denied auditory or vis ual hallucinations.? Attention and concentration were intact and memory appeared reliable but none were formally tested.? He is alert and oriented x3.? Insight and judgment appears limited and impulse control appears impaired. Cognition: Patient Appearance: Appropriate Ability to Follow Directions: Good Patient Orientation (long list): Person, Place, Name, Age, Birthday, Month and Year Comprehension Ability: Understands Concepts Hallucination Type: None Delusion Description: Not Present Thought Process: Appropriate Affect: Affect Description: Calm Behavior: Patient Behavior: Cooperative Speech Pattern: Clear Vitals/I&O/Wt Last Vital Signs Temp 98.0 F 05/28/21 06:00 Pulse 86 05/28/21 06:00 Resp 18 05/28/21 06:00 BP 127/81 05/28/21 06:00 Pulse Ox 96 05/28/21 06:00 Weight last 48 hrs Weight 189.148 kg Data NPU : 05/28/21 08:05 A&P Assessment and plan (1) Borderline personality disorder: Status: Acute (2) Schizoaffective disorder, depressive type: Status: Suspected (3) Anxiety disorder, unspecified: Status: Acute (4) Autistic spectrum disorder: Status: Acute Plan This is a 30-year old male who is been hospitalized about once per month with suicidal ideation since he moved in with his father last August. Plan: 1. Continue current medication. Add lithium 300 mg 3 times a day today. 2. Continue every 15 minute checks for safety. 3. Encourage individual, group and milieu therapies. 4. Encourage sober living treatment after discharge at the highest level of care to which he is willing to commit. 5. We will monitor for safety for himself in the community prior to discharge. Involuntary Hold Information 96 Hour Hold: 96 Hour Involuntary Admission: No Attestations NPU Medical Necessity Statement*: Inpatient hospitalization is medically necessary and the clinically appropriate intervention at this time. We will initiate medications and make changes as indicated. 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
--- NOTE | 2021-05-28 16:29 | PC.NURSE ---
refused scheduled Metamucil
[2021-05-28 20:26] VITALS: BP 159/93; PULSE 90; RESP 20; TEMP 36.5; O2SAT 93
[2021-05-28] MEDS: quetiapine 100 mg Tablet PO (20:48)
[2021-05-28] MEDS: quetiapine 300 mg Tablet PO (20:48)
[2021-05-29 06:00] VITALS: BP 153/93; PULSE 90; RESP 18; TEMP 36.4; O2SAT 96
[2021-05-29] MEDS: BuSPIRONE 10 mg Tablet PO ×3 (08:48→20:40)
[2021-05-29] MEDS: lisinopril 20 mg Tablet PO (08:48)
[2021-05-29] MEDS: gabapentin 300 mg Capsule 600 MG PO ×3 (08:48→20:41)
[2021-05-29] MEDS: OXcarbazepine 300 mg Tablet PO ×2 (08:48→21:30)
[2021-05-29] MEDS: lithium carbonate 300 mg Capsule PO ×2 (08:48→13:19)
[2021-05-29] MEDS: propranolol 20 mg Tablet PO ×3 (08:48→20:40)
[2021-05-29] MEDS: venlafaxine ER (24HR) 150 mg Capsule 300 MG PO (08:49)
--- NOTE | 2021-05-29 11:12 | P.NPUPN_ITS ---
Subjective NPU Subjective: He said that his anxiety was worse again this morning. He says that it comes and goes. He denies any suicidal ideation but would like to try increasing the lithium to see if that helps more. We will get a level tomorrow. We talked about waiting until tomorrow to increase to 4 a day but decided to go ahead and do that today. He has not had any side effects from the lithium other than some increased thirst. Mental Status Exam MSE Comments: The patient is a morbidly obese white male in hospital scrubs with limited grooming and adequate eye contact.? No abnormal movements. Normal psychomotor activity.? Cooperative with exam in no distress.? Speech was of normal rate and elevated volume.? Mood described as depressed but better affect mildly dysphoric.? Thought process organized.? He denies suicidal or homicidal ideation. There were no delusions reported or noted, he denied auditory or visual hallucinations.? Attention and concentration were intact and memory appeared reliable but none were formally tested.? He is alert and oriented x3.? Insight and judgment appears limited and impulse control appears impaired. Cognition: Patient Appearance: Appropriate Ability to Follow Directions: Good Patient Orientation (long list): Person, Place, Name, Age, Birthday, Month and Year Comprehension Ability: Understands Concepts Hallucination Type: None Delusion Description: Not Present Thought Process: Appropriate Affect: Affect Description: Calm Behavior: Patient Behavior: Cooperative Speech Pattern: Clear Vitals/I&O/Wt Last Vital Signs Temp 97.5 F L 05/29/21 06:00 Pulse 90 05/29/21 06:00 Resp 18 05/29/21 06:00 BP 153/93 05/29/21 06:00 Pulse Ox 96 05/29/21 06:00 Weight last 48 hrs Weight 189.148 kg Data NPU : 05/28/21 08:05 A&P Assessment and plan (1) Borderline personality disorder: Status: Acute (2) Schizoaffective disorder, depressive type: Status: Suspected (3) Anxiety disorder, unspecified: Status: Acute (4) Autistic spectrum disorder: Status: Acute Plan This is a 30-year old male who is been hospitalized about once per month with suicidal ideation since he moved in with his father last August. Plan: 1. Continue current medication. Increase lithium 300 mg 1 twice a day and 2 at bedtime 2. Continue every 15 minute checks for safety. 3. Encourage individual, group and milieu therapies. 4. Encourage sober living treatment after discharge at the highest level of care to which he is willing to commit. 5. We will monitor for safety for himself in the community prior to discharge. Involuntary Hold Information 96 Hour Hold: 96 Hour Involuntary Admission: No Attestations NPU Medical Necessity Statement*: Inpatient hospitalization is medically necessary and the clinically appropriate intervention at this time. We will initiate medications and make changes as indicated. Coding Level of Care Code Acute Sanitary Plumber for [facility] Fwd Diagnoses Borderline personality disorder F60.3 Schizoaffective disorder, depressive type F25.1 Anxiety disorder, unspecified F41.9 Autistic spectrum disorder F84.0
[2021-05-29 13:35] VITALS: BP 144/82; PULSE 110; RESP 18; TEMP 36.6; O2SAT 95
--- NOTE | 2021-05-29 15:28 | PC.SOCIAL ---
Patient attended and participated in group.
[2021-05-29] MEDS: nicotine 4 mg lozenge MUCOUS MEM (18:16)
[2021-05-29 19:39] VITALS: BP 146/95; PULSE 96; RESP 18; TEMP 36.7; O2SAT 96
[2021-05-29] MEDS: quetiapine 100 mg Tablet PO (20:40)
[2021-05-29] MEDS: quetiapine 300 mg Tablet PO (20:40)
[2021-05-29] MEDS: lithium carbonate 300 mg Capsule 600 MG PO (20:41)
[2021-05-30 06:00] VITALS: BP 127/85; PULSE 86; RESP 18; TEMP 36.7; O2SAT 94
[2021-05-30 09:05] LABS: Lithium 0.5 mmol/L (0.6-1.2)
[2021-05-30] MEDS: nicotine 4 mg lozenge MUCOUS MEM (10:22)
[2021-05-30] MEDS: BuSPIRONE 10 mg Tablet PO ×3 (10:23→20:41)
[2021-05-30] MEDS: propranolol 20 mg Tablet PO ×3 (10:24→20:42)
[2021-05-30] MEDS: venlafaxine ER (24HR) 150 mg Capsule 300 MG PO (10:24)
[2021-05-30] MEDS: gabapentin 300 mg Capsule 600 MG PO ×3 (10:24→20:41)
[2021-05-30] MEDS: lisinopril 20 mg Tablet PO (10:24)
[2021-05-30] MEDS: OXcarbazepine 300 mg Tablet PO ×2 (10:25→20:41)
[2021-05-30] MEDS: lithium carbonate 300 mg Capsule PO ×2 (10:27→13:18)
--- NOTE | 2021-05-30 11:50 | P.NPUPN_ITS ---
Subjective NPU Subjective: He says that the anxiety is better today. He also feels the depression is better with the lithium. He did not have any side effects taking 4 daily yesterday. His lithium level was 0.5 which would probably be 0.6 after another couple of days of lithium 1200 mg a day. He feels like he is sig nificantly better and will be ready for discharge tomorrow. Mental Status Exam MSE Comments: The patient is a morbidly obese white male in hospital scrubs with limited grooming and adequate eye contact. He is in bed during group at 11:35 AM. No abnormal movements. Normal psychomotor activity.? Cooperative with exam in no distress.? Speech was of normal rate and elevated volume.? Mood described as good. Affect is mildly dysphoric..? Thought process organized.? He denies suicidal or homicidal ideation. There were no delusions reported or noted, he denied auditory or visual hallucinations.? Attention and concentration were intact and memory appeared reliable but none were formally tested.? He is alert and oriented x3.? Insight and judgment appears limited and impulse control appears impaired. Cognition: Patient Appearance: Appropriate Ability to Follow Directions: Good Patient Orientation (long list): Person, Place, Name, Age, Birthday, Month and Year Comprehension Ability: Understands Concepts Hallucination Type: None Delusion Description: Not Present Thought Process: Appropriate Affect: Affect Description: Calm Behavior: Patient Behavior: Appropriate and Cooperative Speech Pattern: Clear Vitals/I&O/Wt Last Vital Signs Temp 98.0 F 05/30/21 06:00 Pulse 86 05/30/21 06:00 Resp 18 05/30/21 06:00 BP 127/85 05/30/21 06:00 Pulse Ox 94 05/30/21 06:00 Data NPU : 05/28/21 08:05 A&P Assessment and plan (1) Borderline personality disorder: Status: Acute (2) Schizoaffective disorder, depressive type: Status: Suspected (3) Anxiety disorder, unspecified: Status: Acute (4) Autistic spectrum disorder: Status: Acute Plan This is a 30-year old male who is been hospitalized about once per month with suicidal ideation since he moved in with his father last August. Plan: 1. Continue current medication. lithium 300 mg 1 twice a day and 2 at bedtime 2. Continue every 15 minute checks for safety. 3. Encourage individual, group and milieu therapies. 4. Encourage sober living treatment after discharge at the highest level of care to which he is willing to commit. 5. We will monitor for safety for himself in the community prior to discharge. Involuntary Hold Information 96 Hour Hold: 96 Hour Involuntary Admission: No Attestations NPU Medical Necessity Statement*: Inpatient hospitalization is medically necessary and the clinically appropriate intervention at this time. We will initiate medications and make changes as indicated. 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
[2021-05-30] MEDS: benzocaine 20% 7 gm 1 APPLIC MUCOUS MEM (12:14)
[2021-05-30 13:46] VITALS: BP 149/90; PULSE 100; RESP 22; TEMP 36.7; O2SAT 95
[2021-05-30 20:02] VITALS: BP 141/88; PULSE 89; RESP 17; TEMP 36.8; O2SAT 93
[2021-05-30] MEDS: lithium carbonate 300 mg Capsule 600 MG PO (20:41)
[2021-05-30] MEDS: quetiapine 300 mg Tablet PO (20:41)
[2021-05-30] MEDS: quetiapine 100 mg Tablet PO (20:42)
[2021-05-31 06:00] VITALS: BP 125/76; PULSE 87; RESP 16; TEMP 36.8; O2SAT 96
[2021-05-31] MEDS: lithium carbonate 300 mg Capsule PO (06:44)
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
[2021-05-31 07:41] VITALS: BP 125/76; PULSE 87; RESP 16; TEMP 36.8; O2SAT 96
== END 2021-05-31 07:55 | disposition home or self-care (01) | DRG 883 ==
PROVIDERS: Psychiatry & Neurology Psychiatry; Admitting Provider Psychiatry & Neurology Psychiatry; Visit Provider Psychiatry & Neurology Psychiatry
DX: F60.3 Borderline personality disorder (principal); R45.851 Suicidal ideations; F25.1 Schizoaffective disorder, depressive type; F41.9 Anxiety disorder, unspecified; F84.0 Autistic disorder
CPT/HCPCS: 36415; 80178; 85025; 97150; 97165